=== PATIENT | male | born 1960 | race Caucasian/White ===

== ENCOUNTER 2019-11-30 14:44 | Inpatient (IN) | payer MEDICARE, MEDICAID ==
[~2019-11-30] VITALS: Ht 182.9 cm; Wt 80.7 kg
[2019-11-30] MEDS ORDERED: DEPAKOTE ER500 MG ORAL (15:05)
[2019-11-30] MEDS ORDERED: SENNA8.6 M2 PO (15:05)
[2019-11-30] MEDS ORDERED: TRAMADOL HCL50 MG ORAL (15:05)
[2019-11-30] MEDS ORDERED: RISPERDAL2 MG ORAL (15:05)
[2019-11-30] MEDS ORDERED: LEXAPRO10 MG ORAL (15:05)
[2019-11-30] MEDS ORDERED: METOPROLOL TART25 MG ORAL (15:05)
[2019-11-30] MEDS ORDERED: MULTIVITAMINS1 EAC2 ORAL (15:05)
[2019-11-30] MEDS ORDERED: QUERCETIN DIHYDR1 GM PO (15:05)
--- NOTE | 2019-11-30 15:08 | Emergency Room Report ---
History of Present Illness General Chief Complaint: Generalized Weakness Source: Patient Present Illness HPI 58-year-old male presents to ED complaining of vomiting. Brought in by EMS from care home facility. States he is had multiple episodes of nausea and vomiting since yesterday. States he feels weak. Denies fevers or chills. Denies cough. Denies any diarrhea. No other aggravating relieving factors. Denies any other associated symptoms Allergies: Coded Allergies: No Known Allergies (Unverified , 11/30/19) COVID-19 Screening Contact w/high risk pt: No Recent Travel to affected area: No Experienced COVID-19 symptoms?: No COVID-19 Testing performed MATERIAL HAULER: No Patient History Past Medical History: HTN, COPD, psych hx Past Surgical History: none Pertinent Family History: none Social History: Denies: smoking, alcohol use, drug use Immunizations: UTD Reviewed Nursing Documentation: PMH: Agreed; PSxH: Agreed Nursing Documentation-PMH Past Medical History: No History, Except For Hx Hypertension: Yes Hx COPD: Yes Review of Systems All Other Systems: negative except mentioned in HPI Physical Exam Vital Signs Date Time Temp Pulse Resp B/P (MAP) Pulse Ox O2 Delivery O2 Flow Rate FiO2 11/30/19 14:46 98.8 67 16 126/83 (97) 92 Room Air Sp02 EP Interpretation: reviewed, normal General Appearance: no apparent distress, alert, GCS 15, non-toxic Head: normocephalic, atraumatic Eyes: bilateral eye normal inspection, bilateral eye PERRL ENT: hearing grossly normal, normal pharynx, no angioedema, normal voice Neck: full range of motion, supple/symm/no masses Respiratory: chest non-tender, lungs clear, normal breath sounds, speaking full sentences Cardiovascular #1: regular rate, rhythm, no edema Cardiovascular #2: 2+ carotid (R), 2+ carotid (L), 2+ radial (R), 2+ radial (L) , 2+ dorsalis pedis (R), 2+ dorsalis pedis (L) Gastrointestinal: normal bowel sounds, non tender, soft, non-distended, no guarding, no rebound Rectal: deferred Genitourinary: normal inspection, no CVA tenderness Musculoskeletal: back normal, normal range of motion, gait/station normal, non- tender Neurologic: alert, motor strength/tone normal, oriented x3, sensory intact, responsive, speech normal Psychiatric: judgement/insight normal, memory normal, mood/affect normal, no suicidal/homicidal ideation Reflexes: 3+ bicep (R), 3+ bicep (L), 3+ tricep (R), 3+ tricep (L), 3+ knee (R) , 3+ knee (L) Lymphatic: no adenopathy Medical Decision Making Diagnostic Impression: Primary Impression: Episode of generalized weakness Additional Impression: Vomiting Qualified Codes: R11.2 - Nausea with vomiting, unspecified ER Course Hospital Course 58-year-old M presenting to ED with generalized weakness, vomiting Differential diagnoses include: Pneumonia, UTI, sepsis, dehydration, Clinical course Patient placed on stretcher. On fagot maker with stable vitals are ED course. in isolation. i wore full PPE. After initial history and physical, I ordered labs, IV fluids, chest x-ray, blood cultures, UA. Labs - electrolytes ok, no leukocytosis CXR - no acute process concern for COVID - swab sent. Case discussed with Dr Olmedo and they agreed to admit patient to their service for further care and support I feel this is a highly complex case requiring extensive working including EKG/ Rhythm strip, Xray/CT/US, Blood/urine lab work, repeat exams while in ED, and administration of strong opiates/narcotics for pain control, admission to hospital or close patient follow up. Diagnosis - vomiting, generalized weakness Patient admitted to floor in serous condition Labs Test 11/30/19 15:10 White Blood Count 6.6 K/UL (4.8-10.8) Red Blood Count 5.68 M/UL (4.70-6.10) Hemoglobin 17.2 G/DL (14.2-18.0) Hematocrit 51.9 % (42.0-52.0) Mean Corpuscular Volume 91 FL (80-99) Mean Corpuscular Hemoglobin 30.2 PG (27.0-31.0) Mean Corpuscular Hemoglobin Concent 33.1 G/DL (32.0-36.0) Red Cell Distribution Width 12.8 % (11.6-14.8) Platelet Count 171 K/UL (150-450) Mean Platelet Volume 9.1 FL (6.5-10.1) Neutrophils (%) (Auto) 81.3 % (45.0-75.0) Lymphocytes (%) (Auto) 13.6 % (20.0-45.0) Monocytes (%) (Auto) 4.1 % (1.0-10.0) Eosinophils (%) (Auto) 0.3 % (0.0-3.0) Basophils (%) (Auto) 0.7 % (0.0-2.0) Sodium Level 141 MMOL/L (136-145) Potassium Level 4.1 MMOL/L (3.5-5.1) Chloride Level 101 MMOL/L (98-107) Carbon Dioxide Level 32 MMOL/L (21-32) Anion Gap 8 mmol/L (5-15) Blood Urea Nitrogen 27 mg/dL (7-18) Creatinine 1.0 MG/DL (0.55-1.30) Estimat Glomerular Filtration Rate > 60 mL/min (>60) Glucose Level 118 MG/DL (74-106) Lactic Acid Level 1.30 mmol/L (0.4-2.0) Calcium Level 10.4 MG/DL (8.5-10.1) Total Bilirubin 0.6 MG/DL (0.2-1.0) Aspartate Amino Transf (AST/SGOT) 16 U/L (15-37) Alanine Aminotransferase (ALT/SGPT) 19 U/L (12-78) Alkaline Phosphatase 101 U/L (46-116) Total Protein 8.4 G/DL (6.4-8.2) Albumin 4.2 G/DL (3.4-5.0) Globulin 4.2 g/dL Albumin/Globulin Ratio 1.0 (1.0-2.7) Chest X-Ray Diagnostic Results Chest X-Ray Diagnostic Results : Chest X-Ray Ordered: Yes # of Views/Limited/Complete: 1 View Indication: Other EP Interpretation: Yes Interpretation: no consolidation, no effusion, no pneumothorax, no acute cardiopulmonary disease Impression: No acute disease Electronically Signed by: Electronically signed by Rubén Lewis MD Last Vital Signs Date Time Temp Pulse Resp B/P (MAP) Pulse Ox O2 Delivery O2 Flow Rate FiO2 11/30/19 14:46 98.8 67 16 126/83 (97) 92 Room Air Status: improved Disposition: ADMITTED INPATIENT Condition: Serious Rubén Lewis MD November 30, 2019 15:08
[2019-11-30 15:28] VITALS: BP 126/81
[2019-11-30 15:33] LABS: BASOPHILS % (AUTO) 0.7 % (0.0-2.0); EOSINOPHILS % (AUTO) 0.3 % (0.0-3.0); HEMATOCRIT 51.9 % (42.0-52.0); HEMOGLOBIN 17.2 G/DL (14.2-18.0); LYMPHOCYTES % (AUTO) 13.6 % (20.0-45.0); MEAN CORPUSCULAR VOLUME 91 FL (80-99); MONOCYTES % (AUTO) 4.1 % (1.0-10.0); NEUTROPHILS % (AUTO) 81.3 % (45.0-75.0); PLATELET COUNT 171 K/UL (150-450); RED BLOOD COUNT 5.68 M/UL (4.70-6.10); RED CELL DISTRIBUTION WIDTH 12.8 % (11.6-14.8); WHITE BLOOD COUNT 6.6 K/UL (4.8-10.8)
[2019-11-30 15:44] LABS: ANION GAP 8 mmol/L (5-15); BLOOD UREA NITROGEN 27 mg/dL (7-18); CALCIUM 10.4 MG/DL (8.5-10.1); CARBON DIOXIDE 32 MMOL/L (21-32); CHLORIDE 101 MMOL/L (98-107); POTASSIUM 4.1 MMOL/L (3.5-5.1); SODIUM 141 MMOL/L (136-145)
[2019-11-30 15:48] LABS: ALANINE AMINOTRANSFERASE 19 U/L (12-78); ALBUMIN 4.2 G/DL (3.4-5.0); ALKALINE PHOSPHATASE 101 U/L (46-116); ASPARTATE AMINO TRANSFERASE 16 U/L (15-37); BILIRUBIN,TOTAL 0.6 MG/DL (0.2-1.0)
--- NOTE | 2019-11-30 16:03 | Diagnostic Imaging Report ---
Indication: Cough Technique: XRAY Chest 1v Comparison: None Findings: Heart size and mediastinal contours are within normal limits for AP technique. There is no focal airspace consolidation, pneumothorax or pleural effusion. Osseous structures demonstrate no acute abnormality. Impression: No radiographic evidence of acute cardiopulmonary disease.
[2019-11-30 20:00] VITALS: BP 133/85
[2019-11-30] MEDS: D5 1/2NS 1,000 ML IV SCH (21:45)
[2019-11-30] MEDS ORDERED: Morphine Sulfate 2mg/ml Inj(IV/IM USE ONLY) IVP PRN (21:45)
[2019-11-30] MEDS ORDERED: traMADol 50mg tab ORAL PRN (22:45)
[2019-12-01] VITALS: BP 105/56
[2019-12-01 04:00] VITALS: BP 138/79
[2019-12-01 04:25] LABS: EOSINOPHILS % (AUTO) 1.4 % (0.0-3.0); HEMATOCRIT 47.3 % (42.0-52.0); HEMOGLOBIN 16.7 G/DL (14.2-18.0); LYMPHOCYTES % (AUTO) 24.9 % (20.0-45.0); MEAN CORPUSCULAR VOLUME 85 FL (80-99); MONOCYTES % (AUTO) 7.6 % (1.0-10.0); NEUTROPHILS % (AUTO) 65.3 % (45.0-75.0); PLATELET COUNT 143 K/UL (150-450); RED BLOOD COUNT 5.54 M/UL (4.70-6.10); RED CELL DISTRIBUTION WIDTH 11.4 % (11.6-14.8); WHITE BLOOD COUNT 7.3 K/UL (4.8-10.8)
[2019-12-01 07:51] LABS: ANION GAP 11 mmol/L (5-15); BLOOD UREA NITROGEN 26 mg/dL (7-18); CALCIUM 9.9 MG/DL (8.5-10.1); CARBON DIOXIDE 28 MMOL/L (21-32); CHLORIDE 104 MMOL/L (98-107); POTASSIUM 4.1 MMOL/L (3.5-5.1); SODIUM 143 MMOL/L (136-145)
[2019-12-01] MEDS: Depakote ER 500mg tab ORAL SCH ×3 (09:24→17:42)
[2019-12-01 12:00] VITALS: BP 124/90
[2019-12-01] MEDS ORDERED: Omnipaque-300 100ml vial INJ PRN (12:30)
[2019-12-01] MEDS: D5 1/2NS 1,000 ML IV SCH (14:25)
[2019-12-01] MEDS ORDERED: LORazepam 1mg tab ORAL PRN (14:45)
[2019-12-01 16:00] VITALS: BP 136/67
--- NOTE | 2019-12-01 17:00 | Consultation ---
DATE OF CONSULTATION: 12/01/2019 PULMONARY CONSULTATION CONSULTING PHYSICIAN: Ronen Robbins MD. HISTORY OF PRESENT ILLNESS: This is a 58-year-old male with a history of schizophrenia. He is admitted to the hospital with nausea and vomiting. Patient unable to provide any clear history. He was seen by GI. He has been ordered Zofran and fluids. PAST MEDICAL HISTORY: The patient has a past history notable for COPD, schizophrenia, depression, bipolar disorder, GERD, anxiety, hypertension, chronic insomnia. MEDICATIONS: His list of home medications includes Depakote 500 t.i.d., Colace, Fleet's enema, Lexapro 10 mg daily, Lopressor 25 b.i.d., Mylanta, risperidone 2 mg b.i.d. ALLERGIES: None reported. SOCIAL HISTORY: long-term resident. REVIEW OF SYSTEMS: Not reliable. PHYSICAL EXAMINATION: GENERAL: Reveals a 58-year-old male. HEENT: Unremarkable. CHEST: Clear breath sounds bilaterally with normal heart sounds. ABDOMEN: Soft. EXTREMITIES: There is no edema. NEUROLOGIC: Nonfocal. VITAL SIGNS: Blood pressure is 120/60, heart rate 84, respirations 20, he is afebrile, O2 saturation 92% on room air, currently 98% on room air. LABORATORY DATA: Laboratory testing shows normal CBC and BMP. IMAGING STUDIES: X-ray chest was obtained, which shows clear lung rosales bilaterally. IMPRESSION: 1. Nausea and vomiting. 2. Rule out COVID-19. 3. Psych disorder. 4. COPD. 5. Hypertension. DISCUSSION: Admit to the hospital. Continue current medications and care. 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 COVID-19 swab has been sent. IV fluids to be given as well as resume home medications. We will follow carefully. Ronen Robibns M.D. DR: TATIANA JOB#: [id number] CC:
--- NOTE | 2019-12-01 17:30 | Consultation ---
DATE OF CONSULTATION: 12/01/2019 CHIEF COMPLAINT: Abdominal pain and vomiting. HISTORY OF PRESENT ILLNESS: Most of history per chart. This is a 58-year-old skilled nursing patient with numerous medical problems, which I will dictate in a second, mainly psychiatric disorder with schizophrenia, admitted to the hospital with persistent vomiting. PAST MEDICAL HISTORY: 1. History of hypertension. 2. COPD. 3. Schizophrenia. 4. Bipolar disorder. ALLERGIES: No known drug allergies. MEDICATIONS: Please see medication reconciliation list. SOCIAL HISTORY: Currently lives in a skilled nursing. No recent history of tobacco, alcohol, or drug abuse. FAMILY HISTORY: Noncontributory. REVIEW OF SYSTEMS: Unable to obtain. PHYSICAL EXAMINATION: VITAL SIGNS: Temperature is 97.7, pulse 60, respirations 20, blood pressure 138/79. HEENT: Normocephalic and atraumatic. Sclerae anicteric. NECK: Supple. No evidence of obvious lymphadenopathy. CARDIOVASCULAR: Regular rate and rhythm. Plus S1-S2. LUNGS: Clear to auscultation bilaterally. ABDOMEN: Positive bowel sounds. Soft. Minimal tenderness to palpation in the epigastric area. No rebound. No guarding. No peritoneal sign. EXTREMITIES: No cyanosis, no clubbing, no edema. ASSESSMENT AND PLAN: The patient is a 58-year-old male with persistent vomiting. At this time, the etiology is unknown. PLAN: Order Zofran as needed for vomiting, IV fluids for hydration, IV Protonix [address] of the abdomen and pelvis. Order labs for tomorrow including amylase, lipase, CMP. I want to thank, Dr. Florian Olmedo, for this kind referral. Gordo Zhang M.D. DR: Ju JOB#: [id number] CC: Florian Olmedo D.O.
--- NOTE | 2019-12-01 17:30 | History and Physical Report ---
DATE OF ADMISSION: 11/30/2019 DATE AND TIME SEEN: 12/01/2019, approximate time is 12 noon. CONSULTANTS: 1. Ronen Robbins MD. 2. Gordo Zhang MD. CHIEF COMPLAINT: Weakness, vomiting. BRIEF HISTORY: This is a 58-year-old male from [facility], presented with increased vomiting and weakness, came to [place], diagnosed as above. COVID was checked. Patient was admitted to medical floor for further treatment. Currently, sleeping in bed, not talking much. REVIEW OF SYSTEMS: Unavailable. PAST MEDICAL HISTORY: COPD, hypertension, schizophrenia, depression, GERD, weakness. PAST SURGICAL HISTORY: Unknown. MEDICATIONS: Escitalopram, metoprolol, multivitamin, tramadol, morphine, Zofran. ALLERGIES: Denies. SOCIAL HISTORY: Unable to obtain secondary to patient's condition. PHYSICAL EXAMINATION: GENERAL: Sleeping in bed, not talking much. VITAL SIGNS: Temperature is 97 degrees, pulse 68, respirations 20, blood pressure 130/79. GENERAL: Lethargic, sleepy. HEENT: Normocephalic, atraumatic. NECK: Trachea midline. CARDIOVASCULAR: No peripheral edema. PULMONARY: Breathing comfortably on room air. ABDOMEN: No apparent wound. EXTREMITIES: Show no cyanosis or clubbing. LABORATORY DATA: Labs at this time show CBC is normal. BMP show BUN 26, otherwise BMP is normal. ASSESSMENT: 1. Vomiting. 2. Weakness. 3. COPD. 4. Hypertension. 5. Schizophrenia. 6. Depression. 7. GERD. PLAN: 1. Resume home medications. 2. NPO. 3. IV fluids. 4. Dietary followup. 5. Zofran p.r.n. 6. We will add Psych Dr. Marbin pedroza. 7. PT, dietary eval. 8. CBC, BMP in the morning. Florian Olmedo D.O. DR: [place] JOB#: [id number] CC:
[2019-12-01 18:04] LABS: APPEARANCE,URINE CLEAR; BILIRUBIN, URINE NEGATIVE (NEGATIVE); GLUCOSE, URINE (UA) NEGATIVE (NEGATIVE); KETONES,URINE NEGATIVE (NEGATIVE); LEUKOCYTE ESTERASE ,URINE NEGATIVE (NEGATIVE); NITRITE,URINE NEGATIVE (NEGATIVE); PH,URINE 7 (4.5-8.0); PROTEIN,URINE NEGATIVE (NEGATIVE); UROBILINOGEN,URINE NORMAL MG/DL (0.0-1.0)
[2019-12-01 18:06] LABS: COLOR,URINE YELLOW
[2019-12-01 20:00] VITALS: BP 127/65
[2019-12-01] MEDS: Pantoprazole Inj IVP SCH (21:37)
[2019-12-01] MEDS: Sennosides 8.6mg tab ORAL SCH (21:37)
[2019-12-02] VITALS: BP 120/68
--- NOTE | 2019-12-02 02:15 | Consultation ---
DATE OF CONSULTATION: 11/30/2019 HISTORY OF PRESENT ILLNESS: A 58-year-old male patient. The patient came in because of weakness and vomiting. The patient came in from [facility]. Apparently, he has some psychomotor agitation and irritability as well as weakness, vomiting. He has some muscle fever and respiratory insufficiency, rule out COVID-19. He was admitted to the [facility]. He also has diagnosis schizoaffective bipolar type, normally on Depakote 500 mg twice a day, Risperdal 2 mg twice a day, Lexapro 10 mg daily. PAST MEDICAL HISTORY: He has a history of hypertension, respiratory insufficiency, and he also has possible diabetes, dehydration, and weakness, recent vomiting. ALLERGIES: No known drug allergies at this time. PSYCHOTROPIC MEDICATIONS ON ADMISSION: He is on Depakote 500 mg twice a day, Risperdal 2 mg twice a day, and Lexapro 10 mg daily. SUBSTANCE ABUSE HISTORY: He denies drug or alcohol use. FAMILY/PSYCHIATRIC HISTORY: He denies. PAIN ASSESSMENT: 09/19 pain. DEVELOPMENTAL PROBLEMS: Denies. SOCIAL HISTORY: He lives in [facility]. No legal problems. Financially supported by [employer] and Medicare. Family relationships is poor. PSYCHIATRIC HISTORY: Schizoaffective bipolar type. He has had multiple psychiatric admissions. STRENGTHS: He is motivated to get better. He has a place to live. WEAKNESSES: He is impulsive. Minimal support system. MENTAL STATUS EXAMINATION: This is a 58-year-old male. His appearance is disheveled. Attitude, irritable and agitated. Affect is labile. Intellect is poor because he does not know current events, does not know last four presidents. Mood, depressed and anxious. Motor activity, psychomotor agitation. Attention span is poor because he cannot do serial 7's, spell the world backwards. Orientation x2. He is oriented to person and place, not time or situation. Speech is low volume, slurred, nonsensical. Thought process, disorganized and illogical. Thought content, auditory hallucinations and paranoid delusions. Perception is poor because of perceptual disturbance such as auditory hallucinations and paranoid delusions. Abstract reasoning is poor because he does not understand proverbs, only has concrete thinking. Insight is poor because he does not recognize having psych disorder. Judgment is poor because he . DIAGNOSES: 1. Schizoaffective, bipolar type. There is no secondary diagnosis. 2. Medical diagnoses include failure to thrive, vomiting, short of breath, generalized weakness, hypertension. 3. Psychosocial stressors, financial. 4. Function impairment is severe. PLAN: I am going to continue the patient on Risperdal 2 mg twice a day, Depakote 500 mg two times a day, Lexapro 10 mg daily and also add Ativan 1 mg every 6 hours p.r.n. anxiety and agitation. Twenty minutes of cognitive behavioral therapy to help him identify his automatic negative thoughts and help convert his negative thoughts to more positive thoughts to reduce depression, anxiety, and mood lability. I would like to thank Dr. Florian Olmedo for this interesting consultation. The patient was seen and assessed at the bedside. Krystyna Zazueta M.D. DR: LEELEE JOB#: [id number] CC:
[2019-12-02 04:00] VITALS: BP 130/80
[2019-12-02 05:42] LABS: BASOPHILS % (AUTO) 0.7 % (0.0-2.0); EOSINOPHILS % (AUTO) 1.1 % (0.0-3.0); HEMATOCRIT 45.1 % (42.0-52.0); MEAN CORPUSCULAR VOLUME 85 FL (80-99); MONOCYTES % (AUTO) 7.6 % (1.0-10.0); NEUTROPHILS % (AUTO) 64.6 % (45.0-75.0); PLATELET COUNT 157 K/UL (150-450); RED BLOOD COUNT 5.28 M/UL (4.70-6.10); RED CELL DISTRIBUTION WIDTH 11.5 % (11.6-14.8); WHITE BLOOD COUNT 5.9 K/UL (4.8-10.8)
[2019-12-02 06:17] LABS: ALANINE AMINOTRANSFERASE 19 U/L (12-78); ALBUMIN 3.8 G/DL (3.4-5.0); ALBUMIN/GLOBULIN RATIO 0.9 (1.0-2.7); ALKALINE PHOSPHATASE 84 U/L (46-116); ANION GAP 8 mmol/L (5-15); ASPARTATE AMINO TRANSFERASE 11 U/L (15-37); BILIRUBIN,TOTAL 0.6 MG/DL (0.2-1.0); BLOOD UREA NITROGEN 25 mg/dL (7-18); CALCIUM 9.8 MG/DL (8.5-10.1); CARBON DIOXIDE 30 MMOL/L (21-32); CHLORIDE 105 MMOL/L (98-107); POTASSIUM 3.8 MMOL/L (3.5-5.1); SODIUM 143 MMOL/L (136-145)
[2019-12-02 06:21] LABS: AMYLASE 33 U/L (25-115)
[2019-12-02 08:00] VITALS: BP 155/87
[2019-12-02] MEDS: Depakote ER 500mg tab ORAL SCH ×3 (08:22→17:02)
[2019-12-02] MEDS: D5 1/2NS 1,000 ML IV SCH (08:26)
[2019-12-02] MEDS: Pantoprazole Inj IVP SCH ×2 (09:28→09:38)
--- NOTE | 2019-12-02 09:47 | General Progress Note ---
Assessment/Plan Assessment/Plan: 1. History of hypertension. 2. COPD. 3. Schizophrenia. 4. Bipolar disorder. 5. N/V recent labs and notes reviewed psych in put appreciated CT ordered but not done yet Marybeth CASTORENAN will fu Subjective ROS Limited/Unobtainable: No Allergies: Coded Allergies: No Known Allergies (Unverified , 11/30/19) Objective Last 24 Hour Vital Signs Date Time Temp Pulse Resp B/P (MAP) Pulse Ox O2 Delivery O2 Flow Rate FiO2 12/02/19 08:22 82 155/87 12/02/19 04:00 98.6 60 18 130/80 (97) 95 12/02/19 00:00 98.6 54 18 120/68 (85) 98 12/01/19 21:00 53 127/65 12/01/19 21:00 Room Air 12/01/19 20:00 98.8 53 18 127/65 (85) 98 12/01/19 16:00 98.2 98 19 136/67 (90) 98 12/01/19 12:00 98.4 55 18 124/90 (101) 93 Intake and Output 12/01/19 12/02/19 19:00 07:00 Output Total 200 ml Balance -200 ml Output Urine Total 200 ml # Voids 1 Laboratory Tests 12/01/19 17:45: Urine Color Yellow, Urine Appearance Clear, Urine pH 7, Urine Specific [place] 1.010, Urine Protein Negative, Urine Glucose (UA) Negative, Urine Ketones Negative, Urine Blood Negative, Urine Nitrite Negative, Urine Bilirubin Negative , Urine Urobilinogen Normal, Urine Leukocyte Esterase Negative 12/02/19 04:35: White Blood Count 5.9, Red Blood Count 5.28, Hemoglobin 16.0, Hematocrit 45.1, Mean Corpuscular Volume 85, Mean Corpuscular Hemoglobin 30.3, Mean Corpuscular Hemoglobin Concent 35.5, Red Cell Distribution Width 11.5L, Platelet Count 157, Mean Platelet Volume 7.1, Neutrophils (%) (Auto) 64.6, Lymphocytes (%) (Auto) 26.0, Monocytes (%) (Auto) 7.6, Eosinophils (%) (Auto) 1.1, Basophils (%) (Auto ) 0.7, Sodium Level 143, Potassium Level 3.8, Chloride Level 105, Carbon Dioxide Level 30, Anion Gap 8, Blood Urea Nitrogen 25H, Creatinine 1.0, Estimat Glomerular Filtration Rate > 60, Glucose Level 95, Calcium Level 9.8, Total Bilirubin 0.6, Aspartate Amino Transf (AST/SGOT) 11L, Alanine Aminotransferase ( ALT/SGPT) 19, Alkaline Phosphatase 84, Total Protein 7.8, Albumin 3.8, Globulin 4.0, Albumin/Globulin Ratio 0.9L, Amylase Level 33, Lipase 101 Height (Feet): 6 Height (Inches): 0.00 Weight (Pounds): 178 General Appearance: no apparent distress EENT: normal ENT inspection Neck: supple Cardiovascular: normal rate Respiratory/Chest: decreased breath sounds Abdomen: normal bowel sounds, non tender, soft Extremities: non-tender Gordo Zhang MD December 02, 2019 09:47
--- NOTE | 2019-12-02 09:55 | General Progress Note ---
Assessment/Plan Problem List: (1) COPD (chronic obstructive pulmonary disease) ICD Codes: J44.9 - Chronic obstructive pulmonary disease, unspecified SNOMED: 21552168 (2) HTN (hypertension) ICD Codes: I10 - Essential (primary) hypertension SNOMED: 48840836 (3) GERD (gastroesophageal reflux disease) ICD Codes: K21.9 - Gastro-esophageal reflux disease without esophagitis SNOMED: 474228362 (4) Vomiting ICD Codes: R11.10 - Vomiting, unspecified SNOMED: 135554157 Qualifiers: Qualified Codes: R11.2 - Nausea with vomiting, unspecified (5) Episode of generalized weakness ICD Codes: R53.1 - Weakness SNOMED: 76892275 (6) Vomiting ICD Codes: R11.10 - Vomiting, unspecified SNOMED: 926964591 (7) Weakness ICD Codes: R53.1 - Weakness SNOMED: 62507469 Status: unchanged Assessment/Plan: pt diet gi psyc f/u cbc bmp am Subjective Constitutional: Reports: weakness Allergies: Coded Allergies: No Known Allergies (Unverified , 11/30/19) All Systems: reviewed and negative except above Subjective sleepy in bed Objective Last 24 Hour Vital Signs Date Time Temp Pulse Resp B/P (MAP) Pulse Ox O2 Delivery O2 Flow Rate FiO2 12/02/19 08:22 82 155/87 12/02/19 04:00 98.6 60 18 130/80 (97) 95 12/02/19 00:00 98.6 54 18 120/68 (85) 98 12/01/19 21:00 53 127/65 12/01/19 21:00 Room Air 12/01/19 20:00 98.8 53 18 127/65 (85) 98 12/01/19 16:00 98.2 98 19 136/67 (90) 98 12/01/19 12:00 98.4 55 18 124/90 (101) 93 Intake and Output 12/01/19 12/02/19 19:00 07:00 Output Total 200 ml Balance -200 ml Output Urine Total 200 ml # Voids 1 Laboratory Tests 12/01/19 17:45: Urine Color Yellow, Urine Appearance Clear, Urine pH 7, Urine Specific [place] 1.010, Urine Protein Negative, Urine Glucose (UA) Negative, Urine Ketones Negative, Urine Blood Negative, Urine Nitrite Negative, Urine Bilirubin Negative , Urine Urobilinogen Normal, Urine Leukocyte Esterase Negative 12/02/19 04:35: White Blood Count 5.9, Red Blood Count 5.28, Hemoglobin 16.0, Hematocrit 45.1, Mean Corpuscular Volume 85, Mean Corpuscular Hemoglobin 30.3, Mean Corpuscular Hemoglobin Concent 35.5, Red Cell Distribution Width 11.5L, Platelet Count 157, Mean Platelet Volume 7.1, Neutrophils (%) (Auto) 64.6, Lymphocytes (%) (Auto) 26.0, Monocytes (%) (Auto) 7.6, Eosinophils (%) (Auto) 1.1, Basophils (%) (Auto ) 0.7, Sodium Level 143, Potassium Level 3.8, Chloride Level 105, Carbon Dioxide Level 30, Anion Gap 8, Blood Urea Nitrogen 25H, Creatinine 1.0, Estimat Glomerular Filtration Rate > 60, Glucose Level 95, Calcium Level 9.8, Total Bilirubin 0.6, Aspartate Amino Transf (AST/SGOT) 11L, Alanine Aminotransferase ( ALT/SGPT) 19, Alkaline Phosphatase 84, Total Protein 7.8, Albumin 3.8, Globulin 4.0, Albumin/Globulin Ratio 0.9L, Amylase Level 33, Lipase 101 Height (Feet): 6 Height (Inches): 0.00 Weight (Pounds): 178 General Appearance: lethargic EENT: normal ENT inspection Neck: normal alignment Cardiovascular: normal rate, regular rhythm Respiratory/Chest: no respiratory distress, no accessory muscle use Extremities: normal inspection Skin: normal pigmentation Florian Olmedo DO December 02, 2019 09:55
--- NOTE | 2019-12-02 11:39 | Pulmonology Progress Note ---
Subjective ROS Limited/Unobtainable: No Interval Events: None new Constitutional: Reports: no symptoms HEENT: Repors: no symptoms Respiratory: Reports: no symptoms Cardiovascular: Reports: no symptoms Gastrointestinal/Abdominal: Reports: no symptoms Allergies: Coded Allergies: No Known Allergies (Unverified , 11/30/19) All Systems: reviewed and negative except above Objective Last 24 Hour Vital Signs Date Time Temp Pulse Resp B/P (MAP) Pulse Ox O2 Delivery O2 Flow Rate FiO2 12/02/19 09:00 Room Air 12/02/19 08:22 82 155/87 12/02/19 08:00 99.7 82 20 155/87 (109) 95 12/02/19 04:00 98.6 60 18 130/80 (97) 95 12/02/19 00:00 98.6 54 18 120/68 (85) 98 12/01/19 21:00 53 127/65 12/01/19 21:00 Room Air 12/01/19 20:00 98.8 53 18 127/65 (85) 98 12/01/19 16:00 98.2 98 19 136/67 (90) 98 12/01/19 12:00 98.4 55 18 124/90 (101) 93 Intake and Output 12/01/19 12/02/19 19:00 07:00 Output Total 200 ml Balance -200 ml Output Urine Total 200 ml # Voids 1 General Appearance: no acute distress HEENT: normocephalic Respiratory: chest wall non-tender Cardiovascular: normal peripheral pulses Abdomen: normal bowel sounds Microbiology Date/Time Source Procedure Growth Status 11/30/19 15:20 Blood Blood Culture - Preliminary NO GROWTH AFTER 24 HOURS Resulted 11/30/19 15:10 Blood Blood Culture - Preliminary NO GROWTH AFTER 24 HOURS Resulted 11/30/19 16:35 Nasal Nares MRSA Culture - Final NO METHICILLIN RESISTANT STAPH AUREUS... Complete 11/30/19 16:35 Rectum - Final NO CARBAPENEM-RESISTANT ENTEROBACTERI... Complete 11/30/19 16:35 Rectum VRE Culture - Final NO VANCOMYCIN RESISTANT ENTEROCOCCUS ... Complete Laboratory Tests 12/01/19 17:45: Urine Color Yellow, Urine Appearance Clear, Urine pH 7, Urine Specific T[place] 1.010, Urine Protein Negative, Urine Glucose (UA) Negative, Urine Ketones Negative, Urine Blood Negative, Urine Nitrite Negative, Urine Bilirubin Negative , Urine Urobilinogen Normal, Urine Leukocyte Esterase Negative 12/02/19 04:35: White Blood Count 5.9, Red Blood Count 5.28, Hemoglobin 16.0, Hematocrit 45.1, Mean Corpuscular Volume 85, Mean Corpuscular Hemoglobin 30.3, Mean Corpuscular Hemoglobin Concent 35.5, Red Cell Distribution Width 11.5L, Platelet Count 157, Mean Platelet Volume 7.1, Neutrophils (%) (Auto) 64.6, Lymphocytes (%) (Auto) 26.0, Monocytes (%) (Auto) 7.6, Eosinophils (%) (Auto) 1.1, Basophils (%) (Auto ) 0.7, Sodium Level 143, Potassium Level 3.8, Chloride Level 105, Carbon Dioxide Level 30, Anion Gap 8, Blood Urea Nitrogen 25H, Creatinine 1.0, Estimat Glomerular Filtration Rate > 60, Glucose Level 95, Calcium Level 9.8, Total Bilirubin 0.6, Aspartate Amino Transf (AST/SGOT) 11L, Alanine Aminotransferase ( ALT/SGPT) 19, Alkaline Phosphatase 84, Total Protein 7.8, Albumin 3.8, Globulin 4.0, Albumin/Globulin Ratio 0.9L, Amylase Level 33, Lipase 101 Current Medications Medications (Trade) Dose Ordered Sig/Angelina Route PRN Reason Start Time Stop Time Status Last Admin Dose Admin Acetaminophen (Tylenol) 650 mg Q6H PRN ORAL For Pain 11/30/19 21:45 12/30/19 21:44 Barium Sulfate (Readi-Cat 2) 450 ml NOW PRN ORAL Radiology Procedure 12/01/19 12:30 12/03/19 12:16 Divalproex Sodium (Depakote ER) 500 mg TID ORAL 12/01/19 09:00 12/31/19 08:59 12/02/19 08:22 Escitalopram Oxalate (Lexapro) 10 mg DAILY ORAL 12/01/19 09:00 12/31/19 08:59 12/02/19 08:21 Iohexol (OMNIPAQUE-300 100ml) 100 ml NOW PRN INJ Radiology Procedure 12/01/19 12:30 12/03/19 12:16 Lorazepam (Ativan) 1 mg Q6H PRN ORAL For Anxiety 12/01/19 14:45 12/08/19 14:44 Metoprolol Tartrate (Lopressor) 25 mg EVERY 12 HOURS ORAL 12/01/19 09:00 02/29/20 08:59 12/02/19 08:22 Morphine Sulfate (Morphine Sulfate) 2 mg Q4H PRN IVP Severe Pain (Pain Scale 7-10) 11/30/19 21:45 12/07/19 21:44 Multivitamins (Multivitamins) 1 tab DAILY ORAL 12/01/19 09:00 12/31/19 08:59 12/02/19 08:21 Ondansetron HCl (Zofran) 4 mg Q6H PRN IVP Nausea & Vomiting 12/01/19 12:30 12/31/19 12:29 12/01/19 17:42 Pantoprazole (Protonix) 40 mg EVERY 12 HOURS ORAL 12/02/19 21:00 01/01/20 20:59 Risperidone (RisperDAL) 2 mg BID ORAL 12/01/19 09:00 01/15/20 08:59 12/02/19 08:21 Sennosides (Senokot) 17.2 mg BEDTIME ORAL 12/01/19 21:00 12/31/19 20:59 12/01/19 21:37 Tramadol HCl (Ultram) 50 mg Q8H PRN ORAL For Pain 11/30/19 22:45 12/07/19 22:44 Assessment/Plan Assessment/Plan IMPRESSION: 1. Nausea and vomiting. 2. Rule out COVID-19. 3. Psych disorder. 4. COPD. 5. Hypertension. DISCUSSION: A Continue current medications and care. 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 COVID-19 swab has been sent. IV fluids to be given as well as resume home medications. Laurence Dodd Omar Syed MD December 02, 2019 11:39
[2019-12-02 12:00] VITALS: BP 130/69
[2019-12-02 16:09] VITALS: BP 137/73
--- NOTE | 2019-12-02 19:00 | Progress Note ---
DATE: 12/02/2019 SUBJECTIVE: This is a 58-year-old male. Came with vomiting, rule out COVID-19. altered mental status, confusion, mood lability. DIAGNOSIS: Paranoid schizophrenia acute exacerbation, rule out bipolar 2. PLAN: Continue treatment with medications to stabilize his mood. Twenty minutes of cognitive behavioral therapy to help him identify his automatic negative thoughts, help him convert his negative thoughts to more positive thoughts to reduce depression, anxiety, mood lability. Chart reviewed. Discussed with staff. Seen and assessed at bedside. Krystyna Zazueta M.D. DR: CHARISSA JOB#: [id number] CC:
[2019-12-02 20:00] VITALS: BP 96/53
[2019-12-02] MEDS: Sennosides 8.6mg tab ORAL SCH (20:36)
[2019-12-03 00:43] VITALS: BP 104/59
[2019-12-03 04:00] VITALS: BP 120/74
[2019-12-03 06:12] LABS: BASOPHILS % (AUTO) 0.7 % (0.0-2.0); EOSINOPHILS % (AUTO) 1.9 % (0.0-3.0); HEMATOCRIT 43.9 % (42.0-52.0); HEMOGLOBIN 15.5 G/DL (14.2-18.0); LYMPHOCYTES % (AUTO) 20.7 % (20.0-45.0); MEAN CORPUSCULAR VOLUME 85 FL (80-99); MONOCYTES % (AUTO) 7.4 % (1.0-10.0); NEUTROPHILS % (AUTO) 69.3 % (45.0-75.0); PLATELET COUNT 150 K/UL (150-450); RED BLOOD COUNT 5.14 M/UL (4.70-6.10); RED CELL DISTRIBUTION WIDTH 11.5 % (11.6-14.8); WHITE BLOOD COUNT 6.4 K/UL (4.8-10.8)
[2019-12-03 06:27] LABS: ANION GAP 5 mmol/L (5-15); BLOOD UREA NITROGEN 24 mg/dL (7-18); CALCIUM 9.2 MG/DL (8.5-10.1); CARBON DIOXIDE 31 MMOL/L (21-32); CHLORIDE 105 MMOL/L (98-107); POTASSIUM 4.2 MMOL/L (3.5-5.1); SODIUM 141 MMOL/L (136-145)
[2019-12-03 08:00] VITALS: BP 135/72
[2019-12-03] MEDS: Depakote ER 500mg tab ORAL SCH ×3 (08:48→17:06)
--- NOTE | 2019-12-03 09:52 | General Progress Note ---
Assessment/Plan Problem List: (1) Vomiting ICD Codes: R11.10 - Vomiting, unspecified SNOMED: 986888407 Qualifiers: Qualified Codes: R11.2 - Nausea with vomiting, unspecified (2) Episode of generalized weakness ICD Codes: R53.1 - Weakness SNOMED: 07591933 (3) COPD (chronic obstructive pulmonary disease) ICD Codes: J44.9 - Chronic obstructive pulmonary disease, unspecified SNOMED: 00112038 (4) Weakness ICD Codes: R53.1 - Weakness SNOMED: 16996323 (5) GERD (gastroesophageal reflux disease) ICD Codes: K21.9 - Gastro-esophageal reflux disease without esophagitis SNOMED: 662951232 (6) Vomiting ICD Codes: R11.10 - Vomiting, unspecified SNOMED: 120108692 (7) HTN (hypertension) ICD Codes: I10 - Essential (primary) hypertension SNOMED: 68643989 Status: progressing, unchanged Assessment/Plan: labs normal resp insuff copd no wheezing supportive therapy Subjective ROS Limited/Unobtainable: Yes Allergies: Coded Allergies: No Known Allergies (Unverified , 11/30/19) Objective Last 24 Hour Vital Signs Date Time Temp Pulse Resp B/P (MAP) Pulse Ox O2 Delivery O2 Flow Rate FiO2 12/03/19 09:20 Room Air 12/03/19 08:48 68 135/72 12/03/19 08:00 97.7 68 20 135/72 (93) 92 12/03/19 04:00 97.9 64 19 120/74 (89) 98 12/03/19 00:43 97.6 72 18 104/59 (74) 96 12/02/19 21:51 Room Air 12/02/19 20:34 67 96/53 12/02/19 20:00 97.9 67 18 96/53 (67) 98 12/02/19 16:09 98.6 75 20 137/73 (94) 96 12/02/19 12:00 98.4 74 20 130/69 (89) 98 Intake and Output 12/02/19 12/03/19 19:00 07:00 Intake Total 1080 ml Balance 1080 ml Intake Oral 960 ml IV Total 120 ml # Voids 4 Laboratory Tests 12/03/19 05:45: White Blood Count 6.4, Red Blood Count 5.14, Hemoglobin 15.5, Hematocrit 43.9, Mean Corpuscular Volume 85, Mean Corpuscular Hemoglobin 30.1, Mean Corpuscular Hemoglobin Concent 35.2, Red Cell Distribution Width 11.5L, Platelet Count 150, Mean Platelet Volume 6.9, Neutrophils (%) (Auto) 69.3, Lymphocytes (%) (Auto) 20.7, Monocytes (%) (Auto) 7.4, Eosinophils (%) (Auto) 1.9, Basophils (%) (Auto ) 0.7, Sodium Level 141, Potassium Level 4.2, Chloride Level 105, Carbon Dioxide Level 31, Anion Gap 5, Blood Urea Nitrogen 24H, Creatinine 1.0, Estimat Glomerular Filtration Rate > 60, Glucose Level 103, Calcium Level 9.2 Height (Feet): 6 Height (Inches): 0.00 Weight (Pounds): 178 Hayden Vega MD December 03, 2019 09:52
--- NOTE | 2019-12-03 10:22 | Pulmonology Progress Note ---
Subjective ROS Limited/Unobtainable: Yes Interval Events: None new Constitutional: Reports: no symptoms HEENT: Repors: no symptoms Respiratory: Reports: no symptoms Cardiovascular: Reports: no symptoms Gastrointestinal/Abdominal: Reports: no symptoms Allergies: Coded Allergies: No Known Allergies (Unverified , 11/30/19) All Systems: reviewed and negative except above Objective Last 24 Hour Vital Signs Date Time Temp Pulse Resp B/P (MAP) Pulse Ox O2 Delivery O2 Flow Rate FiO2 12/03/19 09:20 Room Air 12/03/19 08:48 68 135/72 12/03/19 08:00 97.7 68 20 135/72 (93) 92 12/03/19 04:00 97.9 64 19 120/74 (89) 98 12/03/19 00:43 97.6 72 18 104/59 (74) 96 12/02/19 21:51 Room Air 12/02/19 20:34 67 96/53 12/02/19 20:00 97.9 67 18 96/53 (67) 98 12/02/19 16:09 98.6 75 20 137/73 (94) 96 12/02/19 12:00 98.4 74 20 130/69 (89) 98 Intake and Output 12/02/19 12/03/19 19:00 07:00 Intake Total 1080 ml Balance 1080 ml Intake Oral 960 ml IV Total 120 ml # Voids 4 General Appearance: no acute distress HEENT: normocephalic Respiratory: chest wall non-tender Cardiovascular: normal peripheral pulses Abdomen: normal bowel sounds Microbiology Date/Time Source Procedure Growth Status 11/30/19 15:20 Blood Blood Culture - Preliminary NO GROWTH AFTER 48 HOURS Resulted 11/30/19 15:10 Blood Blood Culture - Preliminary NO GROWTH AFTER 48 HOURS Resulted 11/30/19 16:35 Nasal Nares MRSA Culture - Final NO METHICILLIN RESISTANT STAPH AUREUS... Complete 11/30/19 16:35 Rectum - Final NO CARBAPENEM-RESISTANT ENTEROBACTERI... Complete 11/30/19 16:35 Rectum VRE Culture - Final NO VANCOMYCIN RESISTANT ENTEROCOCCUS ... Complete Laboratory Tests 12/03/19 05:45: White Blood Count 6.4, Red Blood Count 5.14, Hemoglobin 15.5, Hematocrit 43.9, Mean Corpuscular Volume 85, Mean Corpuscular Hemoglobin 30.1, Mean Corpuscular Hemoglobin Concent 35.2, Red Cell Distribution Width 11.5L, Platelet Count 150, Mean Platelet Volume 6.9, Neutrophils (%) (Auto) 69.3, Lymphocytes (%) (Auto) 20.7, Monocytes (%) (Auto) 7.4, Eosinophils (%) (Auto) 1.9, Basophils (%) (Auto ) 0.7, Sodium Level 141, Potassium Level 4.2, Chloride Level 105, Carbon Dioxide Level 31, Anion Gap 5, Blood Urea Nitrogen 24H, Creatinine 1.0, Estimat Glomerular Filtration Rate > 60, Glucose Level 103, Calcium Level 9.2 Current Medications Medications (Trade) Dose Ordered Sig/Angelina Route PRN Reason Start Time Stop Time Status Last Admin Dose Admin Acetaminophen (Tylenol) 650 mg Q6H PRN ORAL For Pain 11/30/19 21:45 12/30/19 21:44 Barium Sulfate (Readi-Cat 2) 450 ml NOW PRN ORAL Radiology Procedure 12/01/19 12:30 12/03/19 12:16 Divalproex Sodium (Depakote ER) 500 mg TID ORAL 12/01/19 09:00 12/31/19 08:59 12/03/19 08:48 Escitalopram Oxalate (Lexapro) 10 mg DAILY ORAL 12/01/19 09:00 12/31/19 08:59 12/03/19 08:48 Iohexol (OMNIPAQUE-300 100ml) 100 ml NOW PRN INJ Radiology Procedure 12/01/19 12:30 12/03/19 12:16 Lorazepam (Ativan) 1 mg Q6H PRN ORAL For Anxiety 12/01/19 14:45 12/08/19 14:44 Metoprolol Tartrate (Lopressor) 25 mg EVERY 12 HOURS ORAL 12/01/19 09:00 02/29/20 08:59 12/03/19 08:48 Morphine Sulfate (Morphine Sulfate) 2 mg Q4H PRN IVP Severe Pain (Pain Scale 7-10) 11/30/19 21:45 12/07/19 21:44 Multivitamins (Multivitamins) 1 tab DAILY ORAL 12/01/19 09:00 12/31/19 08:59 12/03/19 08:48 Ondansetron HCl (Zofran) 4 mg Q6H PRN IVP Nausea & Vomiting 12/01/19 12:30 12/31/19 12:29 12/01/19 17:42 Pantoprazole (Protonix) 40 mg EVERY 12 HOURS ORAL 12/02/19 21:00 01/01/20 20:59 12/03/19 08:48 Risperidone (RisperDAL) 2 mg BID ORAL 12/01/19 09:00 01/15/20 08:59 12/03/19 08:48 Sennosides (Senokot) 17.2 mg BEDTIME ORAL 12/01/19 21:00 12/31/19 20:59 12/02/19 20:36 Tramadol HCl (Ultram) 50 mg Q8H PRN ORAL For Pain 11/30/19 22:45 12/07/19 22:44 Assessment/Plan Assessment/Plan IMPRESSION: 1. Nausea and vomiting. 2. Rule out COVID-19. 3. Psych disorder. 4. COPD. 5. Hypertension. DISCUSSION: A Continue current medications and care. 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 COVID-19 swab has been sent. IV fluids to be given as well as resume home medications. Ronen Robbins M.D. Ronen Robbins MD December 03, 2019 10:22
[2019-12-03 12:00] VITALS: BP 127/52
[2019-12-03 16:00] VITALS: BP 132/69
[2019-12-03 20:00] VITALS: BP 115/61
--- NOTE | 2019-12-03 20:13 | General Progress Note ---
Assessment/Plan Status: progressing, unchanged Assessment/Plan: Assessment - N/V - improved - Bipolar - HTN - COPD - CPS Recommendations - follow symptoms - OOB - imaging pending - PRN cristy Dumont MD Subjective Allergies: Coded Allergies: No Known Allergies (Unverified , 11/30/19) Subjective above noted patient walking around his room denies abd pain Objective Last 24 Hour Vital Signs Date Time Temp Pulse Resp B/P (MAP) Pulse Ox O2 Delivery O2 Flow Rate FiO2 12/03/19 16:00 98.2 65 20 132/69 (90) 95 12/03/19 12:00 98.4 56 20 127/52 (77) 95 12/03/19 09:20 Room Air 12/03/19 08:48 68 135/72 12/03/19 08:00 97.7 68 20 135/72 (93) 92 12/03/19 04:00 97.9 64 19 120/74 (89) 98 12/03/19 00:43 97.6 72 18 104/59 (74) 96 12/02/19 21:51 Room Air 12/02/19 20:34 67 96/53 Intake and Output 12/02/19 12/03/19 19:00 07:00 Intake Total 1080 ml Balance 1080 ml Intake Oral 960 ml IV Total 120 ml # Voids 4 Laboratory Tests 12/03/19 05:45: White Blood Count 6.4, Red Blood Count 5.14, Hemoglobin 15.5, Hematocrit 43.9, Mean Corpuscular Volume 85, Mean Corpuscular Hemoglobin 30.1, Mean Corpuscular Hemoglobin Concent 35.2, Red Cell Distribution Width 11.5L, Platelet Count 150, Mean Platelet Volume 6.9, Neutrophils (%) (Auto) 69.3, Lymphocytes (%) (Auto) 20.7, Monocytes (%) (Auto) 7.4, Eosinophils (%) (Auto) 1.9, Basophils (%) (Auto ) 0.7, Sodium Level 141, Potassium Level 4.2, Chloride Level 105, Carbon Dioxide Level 31, Anion Gap 5, Blood Urea Nitrogen 24H, Creatinine 1.0, Estimat Glomerular Filtration Rate > 60, Glucose Level 103, Calcium Level 9.2 Height (Feet): 6 Height (Inches): 0.00 Weight (Pounds): 178 Objective NCAT supple CTA RRR abd soft NT ND no edema Jewel Dumont MD December 03, 2019 20:13
--- NOTE | 2019-12-03 20:15 | Progress Note ---
DATE: 12/03/2019 SUBJECTIVE: This is a 58-year-old male patient. This patient continues to have some mood lability, confusion, disorganized thought process, decline in cognition below his baseline. He has got a lot of irritability and confusion. Reason why he is in the hospital because he has got vomiting, weakness, GERD, and hypertension. MENTAL STATUS EXAMINATION: This is a 58-year-old male. Appearance is disheveled. Attitude, irritable and agitated. Affect, guarded and restricted. Intellect poor. Mood, depressed and anxious. Motor activity, psychomotor agitation. Attention span is poor. Orientation x2. Speech is low volume, slurred. Thought process, disorganized and illogical. Insight and judgment are poor. DIAGNOSIS: Schizoaffective, bipolar type. PLAN: Plan for this patient is to treat him with a medication regimen consisting of Ativan 1 mg every 6 hours p.r.n. anxiety and agitation, Risperdal 2 mg twice a day, Lexapro 10 mg daily, Depakote 500 mg three times a day. Twenty minutes of cognitive behavioral therapy to help him identify his automatic negative thoughts and help him convert his negative thoughts to more positive thoughts to reduce depression, anxiety, mood lability. Chart was reviewed and discussed with staff. Seen and assessed in his room. Krystyna Zazueta M.D. DR: GRETTA JOB#: [id number] CC:
[2019-12-03] MEDS: Sennosides 8.6mg tab ORAL SCH (20:41)
[2019-12-04] VITALS: BP 121/74
[2019-12-04 04:00] VITALS: BP 125/75
[2019-12-04 08:00] VITALS: BP 126/79
[2019-12-04] MEDS: Depakote ER 500mg tab ORAL SCH ×3 (08:16→17:29)
--- NOTE | 2019-12-04 10:54 | Pulmonology Progress Note ---
Subjective ROS Limited/Unobtainable: Yes Interval Events: None new Constitutional: Reports: no symptoms HEENT: Repors: no symptoms Respiratory: Reports: no symptoms Cardiovascular: Reports: no symptoms Gastrointestinal/Abdominal: Reports: no symptoms Allergies: Coded Allergies: No Known Allergies (Unverified , 11/30/19) All Systems: reviewed and negative except above Objective Last 24 Hour Vital Signs Date Time Temp Pulse Resp B/P (MAP) Pulse Ox O2 Delivery O2 Flow Rate FiO2 12/04/19 08:16 76 126/79 12/04/19 08:00 98.5 76 19 126/79 (95) 96 12/04/19 04:00 98.0 72 19 125/75 (92) 97 12/04/19 00:00 98.1 71 20 121/74 (90) 98 12/03/19 21:00 Room Air 12/03/19 20:41 71 109/51 12/03/19 20:00 97.9 74 20 115/61 (79) 99 12/03/19 16:00 98.2 65 20 132/69 (90) 95 12/03/19 12:00 98.4 56 20 127/52 (77) 95 Intake and Output 12/03/19 12/04/19 19:00 07:00 Intake Total 2760 ml 750 ml Balance 2760 ml 750 ml Intake Oral 2760 ml 750 ml # Voids 6 2 General Appearance: no acute distress HEENT: normocephalic Respiratory: chest wall non-tender Cardiovascular: normal peripheral pulses Abdomen: normal bowel sounds Current Medications Medications (Trade) Dose Ordered Sig/Angelina Route PRN Reason Start Time Stop Time Status Last Admin Dose Admin Acetaminophen (Tylenol) 650 mg Q6H PRN ORAL For Pain 11/30/19 21:45 12/30/19 21:44 Divalproex Sodium (Depakote ER) 500 mg TID ORAL 12/01/19 09:00 12/31/19 08:59 12/04/19 08:16 Escitalopram Oxalate (Lexapro) 10 mg DAILY ORAL 12/01/19 09:00 12/31/19 08:59 12/04/19 08:15 Lorazepam (Ativan) 1 mg Q6H PRN ORAL For Anxiety 12/01/19 14:45 12/08/19 14:44 12/03/19 23:02 Metoprolol Tartrate (Lopressor) 25 mg EVERY 12 HOURS ORAL 12/01/19 09:00 02/29/20 08:59 12/04/19 08:16 Morphine Sulfate (Morphine Sulfate) 2 mg Q4H PRN IVP Severe Pain (Pain Scale 7-10) 11/30/19 21:45 12/07/19 21:44 Multivitamins (Multivitamins) 1 tab DAILY ORAL 12/01/19 09:00 12/31/19 08:59 12/04/19 08:15 Ondansetron HCl (Zofran) 4 mg Q6H PRN IVP Nausea & Vomiting 12/01/19 12:30 12/31/19 12:29 12/01/19 17:42 Pantoprazole (Protonix) 40 mg EVERY 12 HOURS ORAL 12/02/19 21:00 01/01/20 20:59 12/04/19 08:15 Risperidone (RisperDAL) 2 mg BID ORAL 12/01/19 09:00 01/15/20 08:59 12/04/19 08:15 Sennosides (Senokot) 17.2 mg BEDTIME ORAL 12/01/19 21:00 12/31/19 20:59 12/03/19 20:41 Tramadol HCl (Ultram) 50 mg Q8H PRN ORAL For Pain 11/30/19 22:45 12/07/19 22:44 Assessment/Plan Assessment/Plan IMPRESSION: 1. Nausea and vomiting. 2. Ruled out for COVID-19. 3. Psych disorder. 4. COPD. 5. Hypertension. DISCUSSION: Continue current medications and care. 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 COVID-19 pcr is negative Low suspicion for COVID 19; would not re-test Laurence Dodd Omar Syed MD December 04, 2019 10:54
[2019-12-04 12:08] VITALS: BP 126/82
--- NOTE | 2019-12-04 15:39 | General Progress Note ---
Assessment/Plan Problem List: (1) Vomiting ICD Codes: R11.10 - Vomiting, unspecified SNOMED: 119940453 Qualifiers: Qualified Codes: R11.2 - Nausea with vomiting, unspecified (2) Episode of generalized weakness ICD Codes: R53.1 - Weakness SNOMED: 70157497 (3) COPD (chronic obstructive pulmonary disease) ICD Codes: J44.9 - Chronic obstructive pulmonary disease, unspecified SNOMED: 94318750 (4) Weakness ICD Codes: R53.1 - Weakness SNOMED: 01933919 (5) GERD (gastroesophageal reflux disease) ICD Codes: K21.9 - Gastro-esophageal reflux disease without esophagitis SNOMED: 788357926 (6) Vomiting ICD Codes: R11.10 - Vomiting, unspecified SNOMED: 557043588 (7) HTN (hypertension) ICD Codes: I10 - Essential (primary) hypertension SNOMED: 17052493 Status: progressing, unchanged Assessment/Plan: not hypoxic resp insuff copd reviewed chart and labs and meds supportive therapy Subjective ROS Limited/Unobtainable: Yes Allergies: Coded Allergies: No Known Allergies (Unverified , 11/30/19) Objective Last 24 Hour Vital Signs Date Time Temp Pulse Resp B/P (MAP) Pulse Ox O2 Delivery O2 Flow Rate FiO2 12/04/19 12:08 97.9 79 17 126/82 (97) 97 12/04/19 09:00 Room Air 12/04/19 08:16 76 126/79 12/04/19 08:00 98.5 76 19 126/79 (95) 96 12/04/19 04:00 98.0 72 19 125/75 (92) 97 12/04/19 00:00 98.1 71 20 121/74 (90) 98 12/03/19 21:00 Room Air 12/03/19 20:41 71 109/51 12/03/19 20:00 97.9 74 20 115/61 (79) 99 12/03/19 16:00 98.2 65 20 132/69 (90) 95 Intake and Output 12/03/19 12/04/19 19:00 07:00 Intake Total 2760 ml 750 ml Balance 2760 ml 750 ml Intake Oral 2760 ml 750 ml # Voids 6 2 Height (Feet): 6 Height (Inches): 0.00 Weight (Pounds): 178 Hayden Vega MD December 04, 2019 15:38
--- NOTE | 2019-12-04 15:40 | General Progress Note ---
Assessment/Plan Problem List: (1) Vomiting ICD Codes: R11.10 - Vomiting, unspecified SNOMED: 368288623 Qualifiers: Qualified Codes: R11.2 - Nausea with vomiting, unspecified (2) Episode of generalized weakness ICD Codes: R53.1 - Weakness SNOMED: 47373766 (3) COPD (chronic obstructive pulmonary disease) ICD Codes: J44.9 - Chronic obstructive pulmonary disease, unspecified SNOMED: 65271973 (4) Weakness ICD Codes: R53.1 - Weakness SNOMED: 32735431 (5) GERD (gastroesophageal reflux disease) ICD Codes: K21.9 - Gastro-esophageal reflux disease without esophagitis SNOMED: 969961330 (6) Vomiting ICD Codes: R11.10 - Vomiting, unspecified SNOMED: 158400666 (7) HTN (hypertension) ICD Codes: I10 - Essential (primary) hypertension SNOMED: 98939471 Status: progressing, unchanged Assessment/Plan: not hypoxic resp insuff copd reviewed chart and labs and meds supportive therapy Subjective ROS Limited/Unobtainable: Yes Allergies: Coded Allergies: No Known Allergies (Unverified , 11/30/19) Objective Last 24 Hour Vital Signs Date Time Temp Pulse Resp B/P (MAP) Pulse Ox O2 Delivery O2 Flow Rate FiO2 12/04/19 12:08 97.9 79 17 126/82 (97) 97 12/04/19 09:00 Room Air 12/04/19 08:16 76 126/79 12/04/19 08:00 98.5 76 19 126/79 (95) 96 12/04/19 04:00 98.0 72 19 125/75 (92) 97 12/04/19 00:00 98.1 71 20 121/74 (90) 98 12/03/19 21:00 Room Air 12/03/19 20:41 71 109/51 12/03/19 20:00 97.9 74 20 115/61 (79) 99 12/03/19 16:00 98.2 65 20 132/69 (90) 95 Intake and Output 12/03/19 12/04/19 19:00 07:00 Intake Total 2760 ml 750 ml Balance 2760 ml 750 ml Intake Oral 2760 ml 750 ml # Voids 6 2 Height (Feet): 6 Height (Inches): 0.00 Weight (Pounds): 178 Hayden Vega MD December 04, 2019 15:40
[2019-12-04 16:04] VITALS: BP 121/73
--- NOTE | 2019-12-04 19:30 | Progress Note ---
DATE: 12/04/2019 SUBJECTIVE: A 58-year-old male with weakness, vomiting, confusion, rule out COVID-19 infection. He is very irritable, confused, disorganized. He has got mood lability. He has got no logical plan for his own self-care. Feelings of helplessness, hopelessness, low energy, poor appetite, and loss of interest in activity. DIAGNOSIS: Paranoid schizophrenia with acute exacerbation. MENTAL STATUS EXAMINATION: This is a 58-year-old male. Appearance is disheveled. Attitude, irritable and agitated. Affect, restricted. Intellect poor. Mood, depressed and anxious. Motor activity, psychomotor agitation. Insight and judgment is poor. DIAGNOSIS: 1. Paranoid schizophrenia with acute exacerbation, rule out schizoaffective bipolar type. PLAN: Continue titrating up on his mood stabilizers, 20 minutes of cognitive behavioral therapy to help him identify his automatic negative thoughts and help him convert those negative thoughts to more positive thoughts to reduce depression, anxiety, mood lability. Chart reviewed and discussed with staff. Krystyna Zazueta M.D. DR: JASS JOB#: [id number] CC:
[2019-12-04 20:00] VITALS: BP 133/83
--- NOTE | 2019-12-04 20:11 | General Progress Note ---
Assessment/Plan Status: progressing, unchanged Assessment/Plan: Assessment - N/V - improved - Bipolar - HTN - COPD - CPS Recommendations - follow symptoms - OOB - imaging pending - PRN chasefran Subjective Allergies: Coded Allergies: No Known Allergies (Unverified , 11/30/19) Subjective above noted resting comfortably Objective Last 24 Hour Vital Signs Date Time Temp Pulse Resp B/P (MAP) Pulse Ox O2 Delivery O2 Flow Rate FiO2 12/04/19 16:04 98.0 73 18 121/73 (89) 97 12/04/19 12:08 97.9 79 17 126/82 (97) 97 12/04/19 09:00 Room Air 12/04/19 08:16 76 126/79 12/04/19 08:00 98.5 76 19 126/79 (95) 96 12/04/19 04:00 98.0 72 19 125/75 (92) 97 12/04/19 00:00 98.1 71 20 121/74 (90) 98 12/03/19 21:00 Room Air 12/03/19 20:41 71 109/51 Intake and Output 12/03/19 12/04/19 19:00 07:00 Intake Total 2760 ml 750 ml Balance 2760 ml 750 ml Intake Oral 2760 ml 750 ml # Voids 6 2 Height (Feet): 6 Height (Inches): 0.00 Weight (Pounds): 178 Objective NCAT supple CTA RRR abd soft NT ND no edema Jewel Dumont MD December 04, 2019 20:11
[2019-12-04] MEDS: Sennosides 8.6mg tab ORAL SCH (20:43)
[2019-12-05] VITALS: BP 128/78
[2019-12-05 04:00] VITALS: BP 138/79
--- NOTE | 2019-12-05 07:32 | General Progress Note ---
Assessment/Plan Status: progressing, unchanged Assessment/Plan: 1. History of hypertension. 2. COPD. 3. Schizophrenia. 4. Bipolar disorder. 5. N/V recent labs and notes reviewed psych in joshua Olvera and becca PRN will fu Subjective ROS Limited/Unobtainable: Yes Allergies: Coded Allergies: No Known Allergies (Unverified , 11/30/19) Objective Last 24 Hour Vital Signs Date Time Temp Pulse Resp B/P (MAP) Pulse Ox O2 Delivery O2 Flow Rate FiO2 12/05/19 04:00 98.1 61 18 138/79 (98) 96 12/05/19 00:00 98.1 64 18 128/78 (95) 96 12/04/19 21:00 Room Air 12/04/19 20:43 62 133/83 12/04/19 20:00 97.9 60 18 133/83 (100) 95 12/04/19 16:04 98.0 73 18 121/73 (89) 97 12/04/19 12:08 97.9 79 17 126/82 (97) 97 12/04/19 09:00 Room Air 12/04/19 08:16 76 126/79 12/04/19 08:00 98.5 76 19 126/79 (95) 96 Intake and Output 12/04/19 12/05/19 19:00 07:00 Intake Total 700 ml Balance 700 ml Intake Oral 700 ml # Voids 2 Height (Feet): 6 Height (Inches): 0.00 Weight (Pounds): 178 General Appearance: no apparent distress EENT: normal ENT inspection Neck: supple Cardiovascular: normal rate Respiratory/Chest: decreased breath sounds Abdomen: normal bowel sounds, non tender, soft Extremities: non-tender Gordo Zhang MD December 05, 2019 07:32
[2019-12-05 08:00] VITALS: BP 127/79
[2019-12-05] MEDS: Depakote ER 500mg tab ORAL SCH ×3 (08:48→17:30)
--- NOTE | 2019-12-05 10:26 | Pulmonology Progress Note ---
Subjective ROS Limited/Unobtainable: Yes Interval Events: None new Constitutional: Reports: no symptoms HEENT: Repors: no symptoms Respiratory: Reports: no symptoms Cardiovascular: Reports: no symptoms Gastrointestinal/Abdominal: Reports: no symptoms Allergies: Coded Allergies: No Known Allergies (Unverified , 11/30/19) All Systems: reviewed and negative except above Objective Last 24 Hour Vital Signs Date Time Temp Pulse Resp B/P (MAP) Pulse Ox O2 Delivery O2 Flow Rate FiO2 12/05/19 08:49 69 127/79 12/05/19 04:00 98.1 61 18 138/79 (98) 96 12/05/19 00:00 98.1 64 18 128/78 (95) 96 12/04/19 21:00 Room Air 12/04/19 20:43 62 133/83 12/04/19 20:00 97.9 60 18 133/83 (100) 95 12/04/19 16:04 98.0 73 18 121/73 (89) 97 12/04/19 12:08 97.9 79 17 126/82 (97) 97 Intake and Output 12/04/19 12/05/19 19:00 07:00 Intake Total 700 ml Balance 700 ml Intake Oral 700 ml # Voids 2 General Appearance: no acute distress HEENT: normocephalic Respiratory: chest wall non-tender Cardiovascular: normal peripheral pulses Abdomen: normal bowel sounds Current Medications Medications (Trade) Dose Ordered Sig/Angelina Route PRN Reason Start Time Stop Time Status Last Admin Dose Admin Acetaminophen (Tylenol) 650 mg Q6H PRN ORAL For Pain 11/30/19 21:45 12/30/19 21:44 Divalproex Sodium (Depakote ER) 500 mg TID ORAL 12/01/19 09:00 12/31/19 08:59 12/05/19 08:48 Escitalopram Oxalate (Lexapro) 10 mg DAILY ORAL 12/01/19 09:00 12/31/19 08:59 12/05/19 08:48 Lorazepam (Ativan) 1 mg Q6H PRN ORAL For Anxiety 12/01/19 14:45 12/08/19 14:44 12/03/19 23:02 Metoprolol Tartrate (Lopressor) 25 mg EVERY 12 HOURS ORAL 12/01/19 09:00 8/19/20 08:59 12/05/19 08:49 Morphine Sulfate (Morphine Sulfate) 2 mg Q4H PRN IVP Severe Pain (Pain Scale 7-10) 11/30/19 21:45 12/07/19 21:44 Multivitamins (Multivitamins) 1 tab DAILY ORAL 12/01/19 09:00 12/31/19 08:59 12/05/19 08:48 Ondansetron HCl (Zofran) 4 mg Q6H PRN IVP Nausea & Vomiting 12/01/19 12:30 12/31/19 12:29 12/01/19 17:42 Pantoprazole (Protonix) 40 mg EVERY 12 HOURS ORAL 12/02/19 21:00 01/01/20 20:59 12/05/19 08:48 Risperidone (RisperDAL) 2 mg BID ORAL 12/01/19 09:00 01/15/20 08:59 12/05/19 08:48 Sennosides (Senokot) 17.2 mg BEDTIME ORAL 12/01/19 21:00 12/31/19 20:59 12/04/19 20:43 Tramadol HCl (Ultram) 50 mg Q8H PRN ORAL For Pain 11/30/19 22:45 12/07/19 22:44 Assessment/Plan Assessment/Plan IMPRESSION: 1. Nausea and vomiting. 2. Ruled out for COVID-19. 3. Psych disorder. 4. COPD. 5. Hypertension. DISCUSSION: Continue current medications and care. 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 COVID-19 pcr is negative Low suspicion for COVID 19; would not re-test Laurence Dodd Omar Syed MD December 05, 2019 10:26
[2019-12-05 12:00] VITALS: BP 130/83
--- NOTE | 2019-12-05 15:31 | General Progress Note ---
Assessment/Plan Problem List: (1) COPD (chronic obstructive pulmonary disease) ICD Codes: J44.9 - Chronic obstructive pulmonary disease, unspecified SNOMED: 53209063 (2) HTN (hypertension) ICD Codes: I10 - Essential (primary) hypertension SNOMED: 07710896 (3) GERD (gastroesophageal reflux disease) ICD Codes: K21.9 - Gastro-esophageal reflux disease without esophagitis SNOMED: 838446703 (4) Vomiting ICD Codes: R11.10 - Vomiting, unspecified SNOMED: 726534827 Qualifiers: Qualified Codes: R11.2 - Nausea with vomiting, unspecified (5) Episode of generalized weakness ICD Codes: R53.1 - Weakness SNOMED: 35505641 (6) Vomiting ICD Codes: R11.10 - Vomiting, unspecified SNOMED: 304517659 (7) Weakness ICD Codes: R53.1 - Weakness SNOMED: 97756173 Status: stable, progressing Assessment/Plan: pt diet gi psyc f/u cbc bmp am Subjective Constitutional: Reports: weakness Allergies: Coded Allergies: No Known Allergies (Unverified , 11/30/19) All Systems: reviewed and negative except above Subjective sleepy in bed Objective Last 24 Hour Vital Signs Date Time Temp Pulse Resp B/P (MAP) Pulse Ox O2 Delivery O2 Flow Rate FiO2 12/05/19 12:00 98.1 68 17 130/83 (99) 96 12/05/19 09:00 Room Air 12/05/19 08:49 69 127/79 12/05/19 08:00 97.5 69 18 127/79 (95) 95 12/05/19 04:00 98.1 61 18 138/79 (98) 96 12/05/19 00:00 98.1 64 18 128/78 (95) 96 12/04/19 21:00 Room Air 12/04/19 20:43 62 133/83 12/04/19 20:00 97.9 60 18 133/83 (100) 95 12/04/19 16:04 98.0 73 18 121/73 (89) 97 Intake and Output 12/04/19 12/05/19 19:00 07:00 Intake Total 700 ml Balance 700 ml Intake Oral 700 ml # Voids 2 Height (Feet): 6 Height (Inches): 0.00 Weight (Pounds): 178 General Appearance: lethargic EENT: normal ENT inspection Neck: normal alignment Cardiovascular: normal rate, regular rhythm Respiratory/Chest: no respiratory distress, no accessory muscle use Extremities: normal inspection Skin: normal pigmentation Florian Olmedo DO December 05, 2019 15:31
[2019-12-05 16:00] VITALS: BP 127/83
--- NOTE | 2019-12-05 16:00 | Progress Note ---
DATE: 12/05/2019 SUBJECTIVE: This is a 58-year-old male. The patient is very confused, disorganized, extremely mood labile. He has got no logical plan for his own self-care, he has vomiting, GERD, generalized weakness, hypertension, decline in cognition below his baseline causing him to have increased mood lability, agitation, and psychosis. MENTAL STATUS EXAMINATION: The patient is a 58-year-old male. Appearance is disheveled. Attitude, irritable and agitated. Affect, guarded and restricted. Intellect poor. Mood, depressed and anxious. Motor activity, psychomotor agitation. . DIAGNOSIS: Schizoaffective, bipolar type. PLAN: Treat him with Depakote 500 mg three times a day, Lexapro 10 daily, Risperdal 2 twice a day. A 20 minutes of cognitive behavioral therapy to help him identify his automatic negative thoughts, help convert his negative thoughts to more positive thoughts to reduce depression, anxiety, mood lability. Also continue Ativan 1 every 6 hours p.r.n. anxiety, agitation. Chart was reviewed and discussed with staff. Seen and assessed in his room. Krystyna Zazueta M.D. DR: Campbell JOB#: [id number] CC:
[2019-12-05 20:00] VITALS: BP 106/56
[2019-12-05] MEDS: Sennosides 8.6mg tab ORAL SCH (22:33)
[2019-12-06] VITALS: BP 138/75
[2019-12-06 04:00] VITALS: BP 128/73
[2019-12-06 08:00] VITALS: BP 132/81
[2019-12-06] MEDS: Depakote ER 500mg tab ORAL SCH ×2 (08:16→12:07)
--- NOTE | 2019-12-06 10:02 | Pulmonology Progress Note ---
Subjective ROS Limited/Unobtainable: Yes Interval Events: None new Constitutional: Reports: no symptoms HEENT: Repors: no symptoms Respiratory: Reports: no symptoms Cardiovascular: Reports: no symptoms Gastrointestinal/Abdominal: Reports: no symptoms Allergies: Coded Allergies: No Known Allergies (Unverified , 11/30/19) All Systems: reviewed and negative except above Objective Last 24 Hour Vital Signs Date Time Temp Pulse Resp B/P (MAP) Pulse Ox O2 Delivery O2 Flow Rate FiO2 12/06/19 08:21 67 132/81 12/06/19 08:00 98.1 67 19 132/81 (98) 92 12/06/19 04:00 98.2 73 22 128/73 (91) 91 12/06/19 00:00 98.1 60 20 138/75 (96) 96 12/05/19 22:34 70 106/56 12/05/19 21:00 Room Air 12/05/19 20:00 98.4 70 22 106/56 (73) 92 12/05/19 16:00 97.9 73 17 127/83 (98) 98 12/05/19 12:00 98.1 68 17 130/83 (99) 96 Intake and Output 12/05/19 12/06/19 19:00 07:00 Intake Total 550 ml Balance 550 ml Intake Oral 300 ml Other 250 ml # Voids 4 General Appearance: no acute distress HEENT: normocephalic Respiratory: chest wall non-tender Cardiovascular: normal peripheral pulses Abdomen: normal bowel sounds Current Medications Medications (Trade) Dose Ordered Sig/Angelina Route PRN Reason Start Time Stop Time Status Last Admin Dose Admin Acetaminophen (Tylenol) 650 mg Q6H PRN ORAL For Pain 11/30/19 21:45 12/30/19 21:44 Divalproex Sodium (Depakote ER) 500 mg TID ORAL 12/01/19 09:00 12/31/19 08:59 12/06/19 08:16 Escitalopram Oxalate (Lexapro) 10 mg DAILY ORAL 12/01/19 09:00 12/31/19 08:59 12/06/19 08:16 Lorazepam (Ativan) 1 mg Q6H PRN ORAL For Anxiety 12/01/19 14:45 12/08/19 14:44 12/03/19 23:02 Metoprolol Tartrate (Lopressor) 25 mg EVERY 12 HOURS ORAL 12/01/19 09:00 02/29/20 08:59 12/06/19 08:21 Morphine Sulfate (Morphine Sulfate) 2 mg Q4H PRN IVP Severe Pain (Pain Scale 7-10) 11/30/19 21:45 12/07/19 21:44 Multivitamins (Multivitamins) 1 tab DAILY ORAL 12/01/19 09:00 12/31/19 08:59 12/06/19 08:16 Ondansetron HCl (Zofran) 4 mg Q6H PRN IVP Nausea & Vomiting 12/01/19 12:30 12/31/19 12:29 12/01/19 17:42 Pantoprazole (Protonix) 40 mg EVERY 12 HOURS ORAL 12/02/19 21:00 01/01/20 20:59 12/06/19 08:16 Risperidone (RisperDAL) 2 mg BID ORAL 12/01/19 09:00 01/15/20 08:59 12/06/19 08:16 Sennosides (Senokot) 17.2 mg BEDTIME ORAL 12/01/19 21:00 12/31/19 20:59 12/05/19 22:33 Tramadol HCl (Ultram) 50 mg Q8H PRN ORAL For Pain 11/30/19 22:45 12/07/19 22:44 Assessment/Plan Assessment/Plan IMPRESSION: 1. Nausea and vomiting. 2. Ruled out for COVID-19. 3. Psych disorder. 4. COPD. 5. Hypertension. DISCUSSION: Continue current medications and care. 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 COVID-19 pcr is negative Low suspicion for COVID 19; would not re-test Laurence Dodd Omar Syed MD December 06, 2019 10:01
--- NOTE | 2019-12-06 11:41 | General Progress Note ---
Assessment/Plan Status: stable, progressing Assessment/Plan: 1. History of hypertension. 2. COPD. 3. Schizophrenia. 4. Bipolar disorder. 5. N/V recent labs and notes reviewed psych in [facility] and becca PRN will fu Subjective ROS Limited/Unobtainable: No Allergies: Coded Allergies: No Known Allergies (Unverified , 11/30/19) Objective Last 24 Hour Vital Signs Date Time Temp Pulse Resp B/P (MAP) Pulse Ox O2 Delivery O2 Flow Rate FiO2 12/06/19 09:00 Room Air 12/06/19 08:21 67 132/81 12/06/19 08:00 98.1 67 19 132/81 (98) 92 12/06/19 04:00 98.2 73 22 128/73 (91) 91 12/06/19 00:00 98.1 60 20 138/75 (96) 96 12/05/19 22:34 70 106/56 12/05/19 21:00 Room Air 12/05/19 20:00 98.4 70 22 106/56 (73) 92 12/05/19 16:00 97.9 73 17 127/83 (98) 98 12/05/19 12:00 98.1 68 17 130/83 (99) 96 Intake and Output 12/05/19 12/06/19 19:00 07:00 Intake Total 550 ml Balance 550 ml Intake Oral 300 ml Other 250 ml # Voids 4 Height (Feet): 6 Height (Inches): 0.00 Weight (Pounds): 178 General Appearance: no apparent distress EENT: normal ENT inspection Neck: supple Cardiovascular: normal rate Respiratory/Chest: decreased breath sounds Abdomen: normal bowel sounds, non tender, soft Extremities: non-tender Gordo Zhang MD December 06, 2019 11:41
[2019-12-06 11:59] VITALS: BP 123/73
--- NOTE | 2019-12-06 13:13 | General Progress Note ---
Assessment/Plan Problem List: (1) COPD (chronic obstructive pulmonary disease) ICD Codes: J44.9 - Chronic obstructive pulmonary disease, unspecified SNOMED: 87531645 (2) HTN (hypertension) ICD Codes: I10 - Essential (primary) hypertension SNOMED: 65118229 (3) GERD (gastroesophageal reflux disease) ICD Codes: K21.9 - Gastro-esophageal reflux disease without esophagitis SNOMED: 984362770 (4) Vomiting ICD Codes: R11.10 - Vomiting, unspecified SNOMED: 991946286 Qualifiers: Qualified Codes: R11.2 - Nausea with vomiting, unspecified (5) Episode of generalized weakness ICD Codes: R53.1 - Weakness SNOMED: 63713930 (6) Vomiting ICD Codes: R11.10 - Vomiting, unspecified SNOMED: 817988735 (7) Weakness ICD Codes: R53.1 - Weakness SNOMED: 83330605 Status: stable, progressing Assessment/Plan: pt diet gi psyc f/u cbc bmp am dc if clear Subjective Constitutional: Reports: weakness Allergies: Coded Allergies: No Known Allergies (Unverified , 11/30/19) All Systems: reviewed and negative except above Subjective sleepy in bed Objective Last 24 Hour Vital Signs Date Time Temp Pulse Resp B/P (MAP) Pulse Ox O2 Delivery O2 Flow Rate FiO2 12/06/19 11:59 97.3 58 18 123/73 (90) 95 12/06/19 09:00 Room Air 12/06/19 08:21 67 132/81 12/06/19 08:00 98.1 67 19 132/81 (98) 92 12/06/19 04:00 98.2 73 22 128/73 (91) 91 12/06/19 00:00 98.1 60 20 138/75 (96) 96 12/05/19 22:34 70 106/56 12/05/19 21:00 Room Air 12/05/19 20:00 98.4 70 22 106/56 (73) 92 12/05/19 16:00 97.9 73 17 127/83 (98) 98 Intake and Output 12/05/19 12/06/19 19:00 07:00 Intake Total 550 ml Balance 550 ml Intake Oral 300 ml Other 250 ml # Voids 4 Height (Feet): 6 Height (Inches): 0.00 Weight (Pounds): 178 General Appearance: lethargic EENT: normal ENT inspection Neck: normal alignment Cardiovascular: normal rate, regular rhythm Respiratory/Chest: no respiratory distress, no accessory muscle use Extremities: normal inspection Skin: normal pigmentation Florian Olmedo DO December 06, 2019 13:13
[2019-12-06] MEDS ORDERED: PROTONIX40 MG ORAL (13:35)
--- NOTE | 2019-12-06 22:45 | Progress Note ---
DATE: 12/06/2019 SUBJECTIVE: This is a male patient. He is 58 years old. He has history of COPD, history of GERD, vomiting, and hypertension, but he has got a overlying diagnosis of paranoid schizophrenia with acute exacerbation that is why his attending has requested daily psychiatric consultation. He has also schizoaffective, bipolar type. Mood lability has worsened, worsened by stress of his medical illness. MENTAL STATUS EXAMINATION: . He does have some mood lability, agitation, and confusion. Cognition has declined below his baseline, which is another reason why the attending has requested daily psychiatric consultation. DIAGNOSIS: Schizoaffective, bipolar type. PLAN: Treat him with a medication regimen consisting of Risperdal 2 mg twice a day, Lexapro 10 mg daily, and Depakote 500 mg three times a day. Twenty minutes of cognitive behavioral therapy to help identify his automatic negative thoughts and help him convert those negative thoughts to more positive thoughts to reduce depression, anxiety, mood lability. Chart was reviewed and discussed with staff. Seen and assessed in his room. Krystyna Zazueta M.D. DR: SOLOMON JOB#: [id number] CC:
--- NOTE | 2019-12-08 10:36 | Discharge Summary ---
Discharge Summary Discharge Summary _ DATE OF ADMISSION: 11/30/2019 DATE OF DISCHARGE: 12/06/2019 DISCHARGED BY: Dr Olmedo REASON FOR ADMISSION: 58 years old male, resident [facility], with past medical history of COPD, hypertension, presented to emergency department for evaluation due to multiple episodes of nausea and vomiting for 1 day. Patient reported feeling weak. No reported fever or chills. No cough. No diarrhea. Upon evaluation vital signs were stable. Pulse oximetry was 92%. Laboratory work-up revealed no leukocytosis, stable hemoglobin ,hematocrit ,and platelet count. Stable electrolytes. BUN 27, creatinine 1.0. Lactic acid 1.3. Glucose 118. Stable LFT. Chest x-ray revealed no acute cardiopulmonary pathology. Patient was swabbed for COVID-19 , received 1 L of IV fluids, antiemetic , PPI and admitted for further management. CONSULTANTS: pulmonary Dr. Robbins GI specialist Dr. Zhang psychiatrist Dr. Zazueta [facility]: Patient admitted to medical surgical floor to isolation room. Patient initially was kept n.p.o. and provided with IV hydration. Antiemetic and analgesic provided as needed. Patient started on IV Protonix. Amylase and lipase within normal limits. Patient slowly started on diet and was advanced as tolerated. Bowel regimen instituted. SARS COV 2 by PCR came back non detected. Blood cultures were negative. Pulse oximetry remained stable on room air. Pulmonary toilet was on board as needed. 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 No need for second testing. Isolation was discontinued. Blood pressure was managed with the beta-zachary and remained stable. Psychiatrist seen and evaluated patient. Per psychiatrist patient had schizoaffective bipolar type. Psychiatric medication regimen was optimized as per psychiatrist. Cognitive behavioral therapy provided. Patient was working with a physical therapist. Dietary recommendation implemented in plan of care. Patient was able to tolerate diet. Nausea and vomiting resolved. Patient clinically stabilized and was ready [facility] care. FINAL DIAGNOSES: Suspected COVID-19 infection -ruled out Hypertension COPD Nausea and vomiting GERD Schizoaffective bipolar type DISCHARGE MEDICATIONS: See Medication Reconciliation list. DISCHARGE INSTRUCTIONS: [facility]. Follow up with medical doctor at the facility. I have been assigned to dictate discharge summary for this account. I was not involved in the patient's management. Shanell Mack NP December 08, 2019 10:36
== END 2019-12-06 15:55 | DRG 392 ==
LOC: EDBD 14:44 → EMR 15:54 → 4E 15:57 → EDBEDREQ 16:23
DX: R11.2 Nausea with vomiting, unspecified (principal); R53.1 Weakness; J44.9 Chronic obstructive pulmonary disease, unspecified; I10 Essential (primary) hypertension; K21.9 Gastro-esophageal reflux disease without esophagitis; F32.9 Major depressive disorder, single episode, unspecified; F25.0 Schizoaffective disorder, bipolar type; F41.9 Anxiety disorder, unspecified
CPT/HCPCS: 36415; 71045; 80048; 80053; 81003; 82150; 83605; 83690; 85025; 87040; 87081; 87635; 96361; 96374; 96375; 99285; J2405; J7030

== ENCOUNTER 2020-03-03 22:09 | Emergency (ER) | payer MEDICARE, MEDICAID ==
[~2020-03-03] VITALS: Ht 183.5 cm; Wt 95.3 kg
[~2020-03-03 22:09] MED LIST: DEPAKOTE ER500 MG ORAL; LEXAPRO10 MG ORAL; METOPROLOL TART25 MG ORAL; MULTIVITAMINS1 EAC2 ORAL; PROTONIX40 MG ORAL; QUERCETIN DIHYDR1 GM PO; RISPERDAL2 MG ORAL; SENNA8.6 M2 PO; TRAMADOL HCL50 MG ORAL
[2020-03-03 22:10] VITALS: BP 112/68
[2020-03-03] MEDS ORDERED: ACETAMINOPHEN325 M1 ORAL (22:37)
[2020-03-03] MEDS ORDERED: BISACODYL10 M1 RC (22:37)
[2020-03-03] MEDS ORDERED: ACETAMINOPHEN500 M3 ORAL (22:37)
[2020-03-03] MEDS ORDERED: MOM30 ML ORAL (22:37)
[2020-03-03] MEDS ORDERED: FLEET ENEMA133 M1 RC (22:37)
[2020-03-03] MEDS ORDERED: COLACE100 MG ORAL (22:37)
--- NOTE | 2020-03-03 22:39 | Emergency Room Report ---
History of Present Illness General Chief Complaint: Vomiting Source: Patient, EMS Present Illness HPI Patient presents with vomiting. He says is been going on for 5 days. He denies any pain is in abdomen. No vomiting any coffee grounds or blood. He denies any diarrhea or melena. He denies fevers or chills. He smokes and has been having a mild smoker's cough recently. He denies dysuria. Denies diarrhea or melena. History of COPD. History of schizophrenia and bipolar disorder. No fevers, chills, sore throat, chest pain, shortness of breath, joint pain, rashes, depression, anxiety, visual changes, dizziness, headache. 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 PRESSMAN: No Patient History Past Medical History: see triage record Social History: Reports: smoking Social History Narrative Hussain Anderson Reviewed Nursing Documentation: PMH: Agreed; PSxH: Agreed Nursing Documentation-PMH Hx Cardiac Problems: Yes Hx Hypertension: Yes Hx COPD: Yes Hx Cancer: No Hx Gastrointestinal Problems: Yes Hx Neurological Problems: No Review of Systems All Other Systems: negative except mentioned in HPI Physical Exam Vital Signs Date Time Temp Pulse Resp B/P (MAP) Pulse Ox O2 Delivery O2 Flow Rate FiO2 03/03/20 22:03 98.2 68 20 112/68 (83) 96 Room Air Sp02 EP Interpretation: reviewed, normal General Appearance: well appearing, no apparent distress, GCS 15 Head: normocephalic Eyes: bilateral eye normal inspection, bilateral eye PERRL, bilateral eye EOMI ENT: moist mucus membranes - Poor dentition Neck: full range of motion, supple Respiratory: lungs clear, normal breath sounds Cardiovascular #1: regular rate, rhythm Cardiovascular #2: 2+ radial (R) Gastrointestinal: normal inspection, normal bowel sounds, non tender, no mass, non-distended Musculoskeletal: back normal, normal range of motion Neurologic: alert, oriented x3, grossly normal Psychiatric: mood/affect normal Skin: warm/dry, other - Macules arms possibly related to scratching Medical Decision Making Diagnostic Impression: Primary Impression: Vomiting Qualified Codes: R11.10 - Vomiting, unspecified Additional Impression: History of bipolar schizoaffective ER Course Patient presents with vomiting for approximately 1 week intermittently. Differential includes gastritis, food poisoning, pancreatitis, acute myocardial infarction, dehydration, electrolyte imbalance amongst others. Patient evaluated with EKG, chest x-ray, abdomen film and labs. Patient treated with IV hydration, Zofran and Pepcid. EKG without injury. Chest x-ray no significant disease. Abdomen with nonspecific bowel gas pattern and stool. Labs essentially unremarkable. Patient tolerating oral intake. No vomiting. Abdomen benign. Awaited UA - finally cath patient. UA clear. No medical emergency at this time. Patient stable for outpatient observation and treatment. Prescription of Zofran. Patient has a prescription for Protonix for GERD. Laboratory Tests Test 03/03/20 04:58 03/03/20 22:32 03/03/20 22:51 Urine Color Yellow Urine Appearance Clear Urine pH 7.0 (4.5-8.0) Urine Specific Bertram 1.010 (1.005-1.035) Urine Protein Negative (NEGATIVE) Urine Glucose (UA) Negative (NEGATIVE) Urine Ketones Negative (NEGATIVE) Urine Blood Negative (NEGATIVE) Urine Nitrite Negative (NEGATIVE) Urine Bilirubin Negative (NEGATIVE) Urine Urobilinogen Normal MG/DL (0.0-1.0) Urine Leukocyte Esterase Negative (NEGATIVE) White Blood Count 6.8 K/UL (4.8-10.8) Red Blood Count 4.70 M/UL (4.70-6.10) Hemoglobin 14.5 G/DL (14.2-18.0) Hematocrit 43.8 % (42.0-52.0) Mean Corpuscular Volume 93 FL (80-99) Mean Corpuscular Hemoglobin 30.8 PG (27.0-31.0) Mean Corpuscular Hemoglobin Concent 33.1 G/DL (32.0-36.0) Red Cell Distribution Width 12.7 % (11.6-14.8) Platelet Count 167 K/UL (150-450) Mean Platelet Volume 8.1 FL (6.5-10.1) Neutrophils (%) (Auto) 70.2 % (45.0-75.0) Lymphocytes (%) (Auto) 18.9 % (20.0-45.0) L Monocytes (%) (Auto) 6.9 % (1.0-10.0) Eosinophils (%) (Auto) 3.2 % (0.0-3.0) H Basophils (%) (Auto) 0.8 % (0.0-2.0) Sodium Level 140 MMOL/L (136-145) Potassium Level 3.7 MMOL/L (3.5-5.1) Chloride Level 103 MMOL/L (98-107) Carbon Dioxide Level 31 MMOL/L (21-32) Anion Gap 6 mmol/L (5-15) Blood Urea Nitrogen 28 mg/dL (7-18) H Creatinine 1.0 MG/DL (0.55-1.30) Estimated Glomerular Filtration Rate > 60 mL/min (>60) Glucose Level 140 MG/DL (74-106) H Lactic Acid Level 1.40 mmol/L (0.4-2.0) Calcium Level 9.7 MG/DL (8.5-10.1) Total Bilirubin 0.3 MG/DL (0.2-1.0) Aspartate Amino Transferase (AST) 17 U/L (15-37) Alanine Aminotransferase (ALT) 20 U/L (12-78) Alkaline Phosphatase 89 U/L (46-116) Total Creatine Kinase 283 U/L (26-308) Troponin I 0.000 ng/mL (0.000-0.056) Total Protein 7.7 G/DL (6.4-8.2) Albumin 3.8 G/DL (3.4-5.0) Globulin 3.9 g/dL Albumin/Globulin Ratio 1.0 (1.0-2.7) Lipase 165 U/L (73-393) Prothrombin Time 10.7 SEC (9.30-11.50) Prothrombin Time INR 1.0 (0.9-1.1) Activated Partial Thromboplast Time 26 SEC (23-33) EKG Diagnostic Results Rate: normal Rhythm: NSR ST Segments: no acute changes Rhythm Strip Diag. Results EP Interpretation: yes Rhythm: NSR, no PVC's, no ectopy Chest X-Ray Diagnostic Results Chest X-Ray Diagnostic Results : Chest X-Ray Ordered: Yes # of Views/Limited/Complete: 1 View Indication: Other EP Interpretation: Yes Interpretation: no consolidation, no effusion, no pneumothorax Impression: No acute disease Electronically Signed by: Electronically signed by Mikal Ramsay MD Other X-Ray Diagnostic Results Other X-Ray Diagnostic Results : X-Ray ordered: Abdomen # of Views/Limited Vs Complete: 1 View Interpretation: nonspecific bowel gas, no sbo, other Impression: Other Electronically Signed by: Electronically signed by Mikal Ramsay MD Last Vital Signs Date Time Temp Pulse Resp B/P (MAP) Pulse Ox O2 Delivery O2 Flow Rate FiO2 03/04/20 02:43 98.8 59 18 110/69 99 Room Air Status: improved Disposition: ASSISTED LIVING Condition: Improved Scripts Ondansetron Odt* (ZOFRAN ODT*) 4 Mg Tab.rapdis 4 MG BC EVERY 8 HOURS, #10 TAB 1 Refill Prov: Mikal Ramsay MD 03/04/20 Mikal Ramsay MD Mar 03, 2020 22:39
--- NOTE | 2020-03-03 22:44 | NUR ---
ED Nurse Note: pt BIBA from [facility] c/o vomiting. pt appears to have a developmental delay but is able to follow commands and answer basic questions about his name and birthdate but does not know what year it is. pt reports that he has been vomiting for 5 days, EMS report that SNF staff told them he only had 2 episodes of vomiting that started today. per pt, he is not in any pain, does not know what he vomited. pt has healing scars on bilat arms, appears to be from scratching. he has poor dentition, edentulous and reports smoking cigarettes. 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
[2020-03-03 23:04] LABS: ANION GAP 6 mmol/L (5-15); BLOOD UREA NITROGEN 28 mg/dL (7-18); CALCIUM 9.7 MG/DL (8.5-10.1); CARBON DIOXIDE 31 MMOL/L (21-32); CHLORIDE 103 MMOL/L (98-107); POTASSIUM 3.7 MMOL/L (3.5-5.1); SODIUM 140 MMOL/L (136-145)
[2020-03-03 23:05] LABS: BASOPHILS % (AUTO) 0.8 % (0.0-2.0); EOSINOPHILS % (AUTO) 3.2 % (0.0-3.0); HEMATOCRIT 43.8 % (42.0-52.0); HEMOGLOBIN 14.5 G/DL (14.2-18.0); LYMPHOCYTES % (AUTO) 18.9 % (20.0-45.0); MEAN CORPUSCULAR VOLUME 93 FL (80-99); MONOCYTES % (AUTO) 6.9 % (1.0-10.0); NEUTROPHILS % (AUTO) 70.2 % (45.0-75.0); PLATELET COUNT 167 K/UL (150-450); RED CELL DISTRIBUTION WIDTH 12.7 % (11.6-14.8); WHITE BLOOD COUNT 6.8 K/UL (4.8-10.8)
[2020-03-03 23:10] LABS: ALANINE AMINOTRANSFERASE 20 U/L (12-78); ALBUMIN 3.8 G/DL (3.4-5.0); ALKALINE PHOSPHATASE 89 U/L (46-116); ASPARTATE AMINO TRANSFERASE 17 U/L (15-37); BILIRUBIN,TOTAL 0.3 MG/DL (0.2-1.0); CREATINE KINASE 283 U/L (26-308)
--- NOTE | 2020-03-03 23:41 | Diagnostic Imaging Report ---
EXAM: XR Abdomen, 2 Views CLINICAL HISTORY: ABD PAIN TECHNIQUE: Frontal view of the abdomen/pelvis with upright view of the abdomen. COMPARISON: No relevant prior studies available. FINDINGS: Intraperitoneal space: No free air. Gastrointestinal tract: Stool burden, moderate in the right hemicolon and mild in the transverse and descending colon. No bowel dilatation. No fluid levels. Bones/joints: Unremarkable. IMPRESSION: Nonobstructive bowel gas pattern.
--- NOTE | 2020-03-03 23:42 | Diagnostic Imaging Report ---
EXAM: XR Chest, 1 View CLINICAL HISTORY: ABD PAIN TECHNIQUE: Frontal view of the chest. COMPARISON: No relevant prior studies available. FINDINGS: Lungs: Unremarkable. No consolidation. Pleural space: No pleural effusion. No pneumothorax. Heart: Unremarkable. No cardiomegaly. Bones/joints: Unremarkable. IMPRESSION: No acute cardiopulmonary abnormality.
--- NOTE | 2020-03-03 23:55 | NUR ---
ED Nurse Note: unable to obtain urine sample at this time, pt is refusing straight cath. ERMD notified
[2020-03-04 00:19] VITALS: BP 115/69
--- NOTE | 2020-03-04 00:34 | NUR ---
ED Nurse Note: pt is resting in bed with eyes closed, does not appear to be in any distress at this time. R AC IV site is patent and intact with NS infusing per ERMD orders. pt still unable to provide urine sample. VSS on vehicle monitor technician. no complaints at this time, will continue to monitor pt
--- NOTE | 2020-03-04 01:54 | NUR ---
ED Nurse Note: pt able to tolerate 200 mL of juice without vomiting
[2020-03-04 02:43] VITALS: BP 110/69
--- NOTE | 2020-03-04 04:00 | NUR ---
ED Nurse Note: pt still unable to provide urine at this time. pt encouraged to use bedside urinal repeatedly by multiple RNs. pt states "i don't need to go to the bathroom right now" despite being given oral and IV hydration. pt refusing catheterization. pt falls back asleep after being reminded to try and urinate. VSS on cardiac monitor technician. IV site on R AC patent and intact. no acute distress is noted at this time. will cont to monitor pt
--- NOTE | 2020-03-04 04:45 | NUR ---
ED Nurse Note: urine specimen collected and sent to lab
[2020-03-04 05:11] LABS: APPEARANCE,URINE CLEAR; COLOR,URINE YELLOW
[2020-03-04 05:12] LABS: BILIRUBIN, URINE NEGATIVE (NEGATIVE); GLUCOSE, URINE (UA) NEGATIVE (NEGATIVE); KETONES,URINE NEGATIVE (NEGATIVE); LEUKOCYTE ESTERASE ,URINE NEGATIVE (NEGATIVE); NITRITE,URINE NEGATIVE (NEGATIVE); PROTEIN,URINE NEGATIVE (NEGATIVE); UROBILINOGEN,URINE NORMAL MG/DL (0.0-1.0)
[2020-03-04] MEDS ORDERED: ONDANSETRON ODT4 MG BC (05:16)
--- NOTE | 2020-03-04 05:26 | NUR ---
Spoke with Hussain estrada, aware of patient going back. [facility] contacted, spoke with Yuliya SAWYER-07:[id number].
[2020-03-04 08:20] VITALS: BP 148/84
--- NOTE | 2020-03-04 08:20 | NUR ---
ED Nurse Note: Report given bedside to JIHAN. Pt leaving with all belongings he came with. Pt in stable condition. Respiraitons even and unlabored on room air. Vitals stable as documented. Pt discharged safely via gurney accompanied by ambulance personnel en route to senior care.
== END 2020-03-04 08:20 | disposition home or self-care (01) ==
LOC: EDBD 22:09 → EMR 22:22
DX: R11.10 Vomiting, unspecified (principal); F31.9 Bipolar disorder, unspecified; F25.9 Schizoaffective disorder, unspecified; I10 Essential (primary) hypertension; F17.200 Nicotine dependence, unspecified, uncomplicated; J44.9 Chronic obstructive pulmonary disease, unspecified
CPT/HCPCS: 36415; 71045; 74018; 80053; 81003; 82550; 83605; 83690; 84484; 85025; 85610; 85730; 93005; 96361; 96374; 96375; 99285; J2405; J7030; S0028